=== PATIENT | female | born 1975 | race Caucasian/White ===

== ENCOUNTER 2025-03-12 12:29 | Inpatient (IN) | payer OTHER, SELFPAY ==
--- OUTSIDE RECORDS SUMMARY | 2025-03-10 21:45 | XMS_ITS | Encounter Summary ---
Author Organization [facility] Address [address] [facility] [address] [place] [phone] Phone Care Team Providers Care Lamp Developer Name Role Phone Shayna Becerra NP Primary Care Provider + Reason for Referral * Consultation (Within 2 weeks) - New Request Specialty Diagnoses / Procedures Referred By Mono t Referred To Contact Orthopedic Surgery Max Jennings MD [address] [place] [id number] Phone: tel: fax: mailto:[email or web address] [phone] Phone: tel: Referral ID Status Reason Start Date Expiration Date V isits Requested Visits Authorized [id number] New Request 03/11/2025 03/11/2026 1 1 Reason for Visit * Reason Comments Ankle Injury Encounter Details Date Type Department Care Team ([facility] st Contact Info) Description 03/10/2025 9:45 PM EDT - 03/11/2025 10:20 AM EDT Emergency [facility] Emergency Dept [address] [place] [phone] Emil Bloom MD [address] [place] [id number] [email or web address] Fransisco Han MD, EARLENE [address] [place] [address] [phone] [email or web address] Max Jennings MD [address] [place] [phone] [email or web address] Discharge Disposition: Home or Self Care Social History Tobacco Use Types Packs/Day Years Used Date Smoking Tobacco: Never Passive Smoke Exposure: Never Smokeless Tobacco: Never Tobacco Cessation:Counseling Given: Not Answered Alcohol Use Standard Drinks/Week Comments Yes 0 (1 standard drink = 0.6 oz pur e alcohol) Education Answer Date Recorded Are you interested in more education? Not on corazon e 03/10/2025 Are you concerned about learning? Not on file 03/10/2025 No 03/10/2025 No 03/10/2025 Digital Access Answer Date Recorded No 03/10/2025 No 03/10/2025 Reliable internet access at home? Not on file 03/10/2025 Device with a working camera? Not on file Intimate Partner Violence Answer Date R ecorded Are you denied basic needs s uch as food, clothing, or medical care? No 03/10/2025 In the past 12 months have y ou been in a relationship with a person who hurts, threatens, or tries to control you? No 03/10/2025 Are you denied basic needs s uch as food, clothing, or medical care? No 03/10/2025 In the past 12 months have y ou been in a relationship with a person who hurts, threatens, or tries to control you? No 03/10/2025 Comments Unknown Sex and Gender Information Value Date Recorded Sex Assigned at Not on file Legal Sex Female 9:11 PM EDT Gender Identity Not on file Sexual Orientation Not on file documented as of this encounter Last Filed Vital Signs Vital Sign Reading Time Taken Comments Blood Pressure 116/70 03/11/2025 9:00 AM EDT Pulse 77 03/11/2025 9:00 AM EDT Temperature 36.6 C (97.8 F) 03/11/2025 9:00 AM EDT Respiratory Rate 20 03/11/2025 9:00 AM EDT Oxygen Saturation 97% 03/11/2025 9:00 AM EDT Inhaled Oxygen Concentration - - Weight 56.2 kg (124 lb) 03/11/2025 3:55 AM EDT Height - - Body Mass Index - - documented in this encounter Functional Status * Calculated C-SSRS Risk Score (Lifetime/Recent) Answer Date of Assessment Author No Risk Indicated 03/11/2025 7:37 AM EDT Mayuri Benedict RN * [place] Suicide Severity Rating Scale (Screener/Recent Self-Report) Question Answer Date of Assessment Author 1. Wish to be (Past 1 Month) No 025 7:37 AM EDT Mayuri Collins RN 2. Non-Specific Active Suici aileen Thoughts (Past 1 Month) No 03/11/2025 7:37 AM EDT Manuel Collins RN 6. Suicidal Behavior (Lifetime) No 7:37 AM EDT Mayuri Collins RN documented as of this encounter Discharge Instructions * Discharge Instructions* Nickolas Lockwood MD - 03/11/2025 7:36 AM EDT It was a pleasure evaluating you at the [facility] Emergency Department for your medical care today. What We Found You were seen in the Emergency Department for ankle injury. We took your history and did a physicalexam, lab work, x-rays, CT scans. Your evaluation did not show any life-threatening cause of your symptoms. We believe your symptoms may be due to fractures in her ankle. While in the Emergency Department, we reduced and splinted your ankle. We determined it is safe for you to go home with follow-up care. What to Expect Expect that your pain should get better with time. What to Do Medication changes: Acetaminophen (Tylenol) and ibuprofen (Advil/Motrin) can be taken together to control pain. Take acetaminophen 500mg (Tylenol Extra Strength) - 1 pill every 6 hours as needed for pain. Take ibuprofen 400-600mg (Advil) - 2 or 3 pills with food every 4-6 hours as needed for pain. Do not take naproxen (Aleve) while you are taking ibuprofen. For pain that is not tolerable despite the above, you can take oxycodone 5mg up to every 6 hours. Take aspirin 81mg twice a day until you meet your orthopedics team. Kem-[id number]-[id number] (use crutches) until you see your orthopedics team. When to See a Doctor Please follow up with your orthopedics team in 1 week. When to Return Please return to the Emergency Department or seek further medical attention for any of the following: intolerable pain despite the above regimen, chest pain, shortness of breath, fevers, loss of consciousness, or if you have any other worsening symptoms or concerns. documented in this encounter Medications at Time of Discharge aspirin 81 mg chewable tablet Take 1 tablet (81 mg total) by mouth 2 (two) times a day. 60 tablet 03/11/2025 oxyCODONE 5 MG immediate release tablet Take 1 tablet (5 mg total) by mouth every 6 (six) hours as needed for pain (specific location in comments). Partial fill ok 10 tablet 03/11/2025 documented as of this encounter Progress Notes * Fransisco Han MD, EARLENE - 03/11/2025 3:52 AM EDT History There is no problem list on file for this patient. No past medical history on file. No past surgical history on file. No family history on file. Social History Tobacco Use Smoking status: Never Passive exposure: Never Smokeless tobacco: Never Substance Use Topics Alcohol use: Yes Drug use: Never Current Facility-Administered Medications Medication Dose Route Frequency Provider Last Rate Last Admin acetaminophen (TYLENOL) tablet 975 mg 975 mg Oral Q6H PRN Emil Bloom MD 975 mg at 03/10/252236 ibuprofen (ADVIL,MOTRIN) tablet 600 mg 600 mg Oral Q6H PRN Emil Bloom MD 600 mg at 03/10/252236 morphine injection syringe 2 mg 2 mg Intravenous Once Fransisco Han MD, EARLENE ondansetron (PF) (ZOFRAN) injection 4 mg 4 mg Intravenous Once Fransisco Han MD, EARLENE No current outpatient medications on file. Vitals BP 101/53 Pulse 81 Temp 36.7 ??C (98.1 ??F) (Temporal) Resp 20 SpO2 97% Pre-Sedation Evaluation Purpose of Sedation: Fracture Reduction ROS/Med History General Patient has no history of anesthetic complications. Cardiovascular Cardiovascular review of systems negative except as noted below. Pulmonary Pulmonary review of systems negative except as noted below. GI/Hepatic/Renal GI/hepatic/renal review of systems negative except as noted below. Neuro/Psych Neuro/psych review of systems negative except as noted below. Physical Exam NPO Status: Yes Hours NPO: 9 Airway: Mallampati score is I. Neck ROM is Full. Mouth opening is normal. TM distance is Normal. Dental: The patient in not edentulous. The patient does not have chipped teeth, missing teeth or looseteeth. The patient has dental implants, bridges or caps present. Patient does not have dentures. Car diovascular: The cardiovascular exam is normal. Pulmonary: The pulmonary exam is normal. Breath sounds are clear to auscultation. Neurological: The neurological exam is normal. Sedation Plan ASA Score: 1 Results and Data Reviewed: I personally reviewed the radiology results. I independently viewed the patient's imaging studies. I personally reviewed relevant previous medical records. Sedation Plan: Patient will be placed on color television console monitor, continuous pulse oximetry and continuous capnography. Intravenous access will be maintained. Bag valve mask, oxygen and suction will be available at the bedside. Emergency airway equipment will be immediately available. Medication Plan: Propofol 0.05-2mg/kg IV x1 followed by 0.05-1mg/kg every 2 minutes PRN to achieve deep sedation. Informed Consent: Informed consent obtained from: patient Discharge Plan: Discharge Plan: Has a ride with responsible adult documented in this encounter Consult Notes Only the most recent of 2 notes is shown. * Lauren Lee, PT - 03/11/2025 9:10 AM EDT [facility] PHYSICAL THERAPY EVALUATION Evaluation Impression: Lynda Baca is a 49 y.o. who presents to PT with primary impairments in LLE ROM and muscle performance, balance, gait, and activity tolerance in the setting of a L PER ankle fracture, s/p closed reduction. These impairments negatively impact the patient's ability to resume their independent functional baseline. In today's session, pt demonstrated that she can access and navigate her home environment without physical assistance, compensating well with her axillary crutches and maintaining her weightbearing precautions throughout. Given this and that she has a strong support system at home to assist with ADLs and IADLs as needed, do not anticipate any functional barriers to discharge nora e. No further PT interventions are indicated at this time. Pt plans to follow up with surgeon back home and post op PT plan can be developed then. Therefore, acute PT will sign off but please reach ut with any questions or concerns should they arise. Recommendations: PT Discharge Recommendation: Home no PT services, Home with support PT Discharge Comment: Support from family for higher level ADLs and IADLs as needed Activity While in Hospital: Ambulate with axillary crutches Positioning: Maxamize time OOB AM-PAC (Activity Measure for Post Acute Care): TOTAL SCORE: 24/24 How much help from another person does the patient currently need: Turning from your back to your side while in a flat bed without using bedrails?: None Moving from lying on your back to sitting on the side of a flat bed without using bedrails?: None Moving to and from a bed to a chair (including a wheelchair)?: None Standing up from a chair using your arms (e.g. wheelchair, or bedside chair)?: None Walking in a hospital room?: None Climbing 3-5 steps with a railing?: None [facility]: [facility] Highest Level of Mobility Score: Walk 25+ feet PT History of Present Illness/Hospital Course: 49 y.o. female who sustained a L ankle fracture after jumping off a swing. On exam, NVID. XR demonstrate a L PER ankle fracture. The ankle was closed reduced and splinted in the emergency department. Tests, Labs and Medications: reviewed for relevance Social/Occupational History/Living Environment: Living Environment Lives In: [x] House [] Apartment [] Other Stairs to Enter: 3 Stairs Within: 1 FOS Social Supports Lives With: 16 and 19 yo children Local Support: Family and friends near by Transportation: [x] Self [] Public [] Family/Friends [] The Ride Prior Level of Function Independent Occupation RN Hobbies - Exercise History - Prior Rehab [] Inpatient PT [x] Home PT [x] Outpatient PT Falls History [] Yes [x] No Equipment at Home [] Rolling Walker [] Rolator [] Cane [] Shower Chair [x] Other: axillary crutches Patient Goals: to get better Precautions: LLE NWB in splint Arousal/Attention/Cognition/Communication: WNL Pain: 10/10 pain in LLE Integument: visualized areas WNL Sensation: LLE intact to LT Range of Motion: WNL except unable to assess LLE Muscle Performance: WNL except L hip flexion and knee flexion/extension limited d/t pain, unable toassess L ankle d/t splint Motor Function: isolated and coordinated movements throughout Function/Balance: I = Independent, S = Supervision, CTG = Contact Guard, Min = Minimal Assist, Mod = Moderate Assist,Max = Maximal Assist, D = Dependent, SW=Standard Walker Activity Assistance Device Comments Bed Mobility NE Received in w/c Supine ? Sit NE Sitting Balance I Sit ? Stand I Axillary crutches Standing Balance I Transfers I Good sequencing with device Ambulation I ~25ft, good sequencing and maintained precautions Dynamic Balance I No overt LOB with any mobility task, proper use of crutches throughout Stairs I None Bumped up/down 7 steps with ease, do not anticipate any functional barriers to home Gait: 2 point gait pattern with crutches Ventilation: unlabored, even Hemodynamic Responses / Aerobic Capacity / Endurance: HDS throughout, see flowsheets Frequency*: No further PT needs in this setting (DC acute PT) Plan of Care: DC acute PT Intervention provided: IE completed Therapeutic procedures: Therapeutic activities - sit <> stand and transfers with HD monitoring Gait training and stair training as above Self-care/Home management - Role of PT, POC, mobility recommendations while in house, NWB precautions, how to use crutches/bump up stairs, discharge recommendations Education: as stated above Access Code: [email or web address] URL: [email or web address] Date: 03/11/2025 Prepared by: Lauren Lee Education - Non-Weight Bearing Walking with Crutches Communication: RN and RC re coordination of care, session tolerance, and discharge recommendations Signature: Lauren Lee, [place] [id number] Additional personnel present for part or entirety of today's session: none *The patient???s progress will be assessed at each session. The frequency may be increased or tapered as treatment progresses based on the therapist???s judgment of factors including but not limited to; co morbidities, tissue healing, patient/caregiver independent self management, ability to participate in/receive therapy due to medical stability and/or competing care priorities This note may not reflect all data entered in the flow sheets. Please refer to the column associated with the time of this note for any additional information. documented in this encounter ED Notes * Lynda Quispe - 03/10/2025 9:52 PM EDT Bed: 13 Expected date: Expected time: Means of arrival: Comments: Paged - PT in surge * Mayco Delarosa, RN - 03/10/2025 9:12 PM EDT S-pt standing on structure aprox 2 feet high and jumped off feeling crack to left ankle, + deformity with swelling now, CSMs intact, denies head strike, neg LOC, + ETOH * Leslie Hubbard MD - 03/10/2025 9:11 PM EDT Emergency Department Provider Note Chief Complaint Patient presents with Ankle Injury Triage Note:S-pt standing on structure aprox 2 feet high and jumped off feeling crack to left ankle, + deformity with swelling now, CSMs intact, denies head strike, neg LOC, + ETOH HPI: 49 y.o. female with no significant past medical history presents with left ankle pain and swelling. This evening, patient jumped off of a platform that was raised approximately 2 feet off the ground.She landed on her feet but felt immediate, severe pain in her left ankle and thought she heard an audible crack or pop at the time of impact. She has not been able to walk or bear weight on her left leg since and has had significant pain and swelling to the left ankle. Pain extends superiorly to the mid tib/fib and distally the the entire left foot. Feels unable to move the toes on her left foot.Did not notice any open wounds, bleeding, foreign bodies. Incident happened around 8:30pm. Patient endorses having had 3 drinks over the course of the afternoon/evening and 5mg THC. No other body parts were injured. No head strike, no loss of consciousness.Years ago broke her left 5th toe that was managed nonoperatively. No known history of osteoporosis or malignancy. Not on thinners. Has been attempting to manage pain with ice and compression without relief. Pain is so bad that shealso feels nauseated. No known allergies. Last PO intake around 7-7:30PM. Physical Exam: BP 115/69 Pulse 84 Temp 36.9 ??C (98.5 ??F) (Temporal) Resp 20 SpO2 99% Gen: Tearful Resp: Normal resp rate. Lungs clear to auscultation bilaterally CV: RRR. No murmurs. DP pulses strong and equal bilterally. Cap refills < 2 seconds. MSK: Swelling of the left ankle. Tenderness to palpation diffusely from L mid tib/fib through the midfoot. No swelling of the L knee; no discrete pain, but patient states palpation of the knee is uncomfortable. Skin: Warm, dry. Complexion normal. No open wounds. Neuro: GCS 15. Sensation to light touch intact over LLE. Movement in L ankle joint limited by pain.Unable to move L toes. ? Assessment, Plan and ED Course:49 y.o. female with history of no significant past medical history presents with left ankle pain and swelling. MDM Most concerned for ankle fracture given significant swelling and pain with inability to bear weight, will obtain XR. Less likely is proximal tib/fib injury, but with tenderness extending up to mid tib/fib and discomfort with knee palpation, will obtain tib/fib films as well. Similarly, no swelling or point tenderness over the left foot to raise concern for specific foot injury, but given diffuse pain, will obtain foot XR as well. Reassured that patient is vascularly intact with normal sensationto light touch; difficult to discern on initial evaluation whether difficulty moving toes is due tomotor compromise vs pain limitation. Will manage pain and re-evaluate. Strongly suspect fracture; wi ll review films and discuss with orthopedics. No open wounds to raise concern for open fracture; donot think antibiotics/Tdap warranted. ED Course as of 03/11/25 1011 Sat Mar 10, 2025 2316 Pain worsening, not improved after morphine, will trial Dilaudid [LB] [id number] Cornell's cell [LB] Janet Mar 11, 2025 0205 Orthopedics attempted reduction but needs better alignment, will need to work on sedation for additional attempt [] 0441 Sedation for reduction completed, awaiting formal x-rays [] 0712 I assumed care at 7:12 AM of Lynda Baca who presented: 49 yoF h/w L ankle injury - trimal Sedation done for reduction. [] CT ankle [] final recs from Ortho Please see original provider note for full H&P. [NO] 0722 Ortho says OK for home w/ ortho f/u [] ED Course User Index [] Francisca Cornell MD [LB] Leslie Hubbard MD [NO] Nickolas Lockwood MD Clinical Impressions as of 03/11/25 1011 Closed fracture of left ankle, initial encounter Disposition: Care signed out to incoming team. Leslie Hubbard MD PGY2 [id number] Leslie Hubbard MD Resident 03/11/25 1026 documented in this encounter Plan of Treatment Pending Results Name Type Priority Associated Diagnoses Date /Time Sedation Nursing Routine 03/11/2025 5:0 0 AM EDT Scheduled Referrals Name Type Priority Associated Diagnoses Order Schedule Ambulatory referral to [facility] Orthopedic - Private Practices Outpatient Referral STAT Ordered: 03/11/2025 documented as of this encounter Procedures Procedure Name Priority Date/Time Associated Diagnosis Comments CT ANKLE WITHOUT CONTRAST (LEFT) Routine 03/11/2025 6:53 AM EDT XR ANKLE 3 OR MORE VIEWS (LEFT) Routine 03/11/2025 5:45 AM EDT SEDATION Routine 03/11/2025 5:00 AM EDT XR ANKLE 3 OR MORE VIEWS (LEFT) Routine 03/11/2025 1:26 AM EDT XR FOOT 3 OR MORE VIEWS (LEFT) Routine 03/10/2025 11:03 PM EDT XR ANKLE 3 OR MORE VIEWS (LEFT) Routine 03/10/2025 11:03 PM EDT XR TIBIA FIBULA 2 VIEWS (LEFT) Routine 03/10/2025 11:03 PM EDT documented in this encounter Results * CT ANKLE WITHOUT CONTRAST (LEFT) (03/11/2025 6:53 AM EDT) Anatomical Region Laterality Modality Ankle Left Computed Tomogra phy 03/11/2025 8:07 AM EDT Impressions 03/11/2025 8:18 AM EDT Cast multiple ankle fractures, including medial malleolar, posterior malleolar and distal fibular diaphyseal fractures as described. Narrative 03/11/2025 8:[address] ANKLE WITHOUT CONTRAST (LEFT) Referring clinician's provided indication for this examination in Epic: * Ankle dislocation TECHNIQUE: Multidetector-row CT of the ankle, without intravenous contrast using dose-modulation techniques. Images were reconstructed in the axial, coronal, and sagittal planes. COMPARISON: XR ANKLE 3 OR MORE VIEWS (LEFT) ; XR ANKLE 3 OR MORE VIEWS (LEFT) 05:40:40.000 FINDINGS: Interval casting of multiple ankle fractures. Multiple fractures including: * Mildly displaced fracture of the medial malleolus. Improved alignment compared to original radiograph from 03/10/2025, although similar to prior same day radiograph. * Mildly displaced fracture of the distal fibular diaphysis with minimally comminuted fragments, and half shaft width lateral displacement of the distal fracture fragment. * Fracture fragments at the lateral aspect of the distal tibia at the level of the syndesmosis with mild widening of the syndesmosis. * Posterior malleolus fractures. Tibiotalar alignment appears maintained. Diffuse soft tissue swelling, hemorrhage and edema about the ankle. Procedure Note Jared Bautista MD - 03/11/2025 CT ANKLE WITHOUT CONTRAST (LEFT) Referring clinician's provided indication for this examination in [facility]: *Ankle dislocation TECHNIQUE: Multidetector-row CT of the ankle, without intravenous contrastusing dose-modulation techniques. Images were reconstructed in the axial,coronal, and sagittal planes. COMPARISON: XR ANKLE 3 OR MORE VIEWS (LEFT) ; XR ANKLE 3 ORMORE VIEWS (LEFT) 05:40:40.000 FINDINGS: Interval casting of multiple ankle fractures. Multiple fractures including: * Mildly displaced fracture of the medial malleolus. Improved alignmentcompared to original radiograph from 03/10/2025, although similar to day radiograph. * Mildly displaced fracture of the distal fibular diaphysis withminimally comminuted fragments, and half shaft width lateral displacementof the distal fracture fragment. * Fracture fragments at the lateral aspect of the distal tibia at thelevel of the syndesmosis with mild widening of the syndesmosis. * Posterior malleolus fractures. Tibiotalar alignment appears maintained. Diffuse soft tissue swelling, hemorrhage and edema about the ankle. IMPRESSION: Cast multiple ankle fractures, including medial malleolar, posteriormalleolar and distal fibular diaphyseal fractures as described. us Fransisco Han MD, EARLENE IMG CT EXTREMITY Final Re sult * XR ANKLE 3 OR MORE VIEWS (LEFT) (03/11/2025 5:45 AM EDT) Anatomical Region Laterality Modality Ankle Left Computed Radiogr aphy 03/11/2025 6:04 AM EDT Impressions 03/11/2025 6:06 AM EDT FINDINGS/IMPRESSION: Images obtained with overlying cast material which partially obscures bony detail. Redemonstration of acute fractures of the medial malleolus and distal fibula. There is ongoing interval improvement in alignment of the fractures, with improved distal tibiofibular alignment in comparison to prior. Tibiotalar alignment appears maintained. Narrative 03/11/2025 6:06 AM EDT XR ANKLE 3 OR MORE VIEWS (LEFT) Referring clinician's provided indication for this examination in [facility]: Trauma; s/p reduction COMPARISON: XR ANKLE 3 OR MORE VIEWS (LEFT) 01:17:28.000 Procedure Note Clifford Kam MD - 03/11/2025 XR ANKLE 3 OR MORE VIEWS (LEFT) Referring clinician's provided indication for this examination in [facility]:Trauma; s/p reduction COMPARISON: XR ANKLE 3 OR MORE VIEWS (LEFT) 01:17:28.000 IMPRESSION: FINDINGS/IMPRESSION: Images obtained with overlying cast material which partially obscures bonydetail. Redemonstration of acute fractures of the medial malleolus and distalfibula. There is ongoing interval improvement in alignment of the fractures, withimproved distal tibiofibular alignment in comparison to prior. Tibiotalar alignment appears maintained. Fransisco Han MD, EARLENE IMG XR LOWER EXTREMITY Fi nal Result * XR ANKLE 3 OR MORE VIEWS (LEFT) (03/11/2025 1:26 AM EDT) Anatomical Region Laterality Modality Ankle Left Computed Radiogr aphy 03/11/2025 2:32 AM EDT Impressions 03/11/2025 2:33 AM EDT FINDINGS/IMPRESSION: Images obtained with overlying cast material which partially obscures bony detail. Redemonstration of acute fractures of the medial malleolus and distal fibula. Alignment is improved from prior. Mild persistent widening of the distal tibiofibular syndesmosis. Tibiotalar alignment appears grossly maintained. Narrative 03/11/2025 2:33 AM EDT XR ANKLE 3 OR MORE VIEWS (LEFT) Referring clinician's provided indication for this examination in [facility]: Fracture Follow Up COMPARISON: XR ANKLE 3 OR MORE VIEWS (LEFT) Procedure Note Clifford Kam MD - 03/11/2025 XR ANKLE 3 OR MORE VIEWS (LEFT) Referring clinician's provided indication for this examination in [facility]:Fracture Follow Up COMPARISON: XR ANKLE 3 OR MORE VIEWS (LEFT) IMPRESSION: FINDINGS/IMPRESSION: Images obtained with overlying cast material which partially obscures bonydetail. Redemonstration of acute fractures of the medial malleolus and distalfibula. Alignment is improved from prior. Mild persistent widening of the distaltibiofibular syndesmosis. Tibiotalar alignment appears grossly maintained. us Fransisco Han MD, EARLENE IMG XR LOWER EXTREMITY Fi nal Result * XR Tibia Fibula 2 Views (Left) (03/10/2025 11:03 PM EDT) Anatomical Region Laterality Modality Leg Left Computed Radiogr aphy 03/11/2025 2:24 AM EDT Impressions 03/11/2025 2:28 AM EDT Acute fractures of the medial malleolus and distal fibula with dislocation of the distal tibiofibular syndesmosis and malalignment of the tibiotalar joint. Narrative 03/11/2025 2:28 AM EDT XR ANKLE 3 OR MORE VIEWS (LEFT), XR TIBIA FIBULA 2 VIEWS (LEFT), XR FOOT 3 OR MORE VIEWS (LEFT) Referring clinician's provided indication for this examination in Epic: Pain; fall, ankle tenderness. COMPARISON: FINDINGS: Tibia/fibula, foot, and ankle: Acute fracture of the medial malleolus. Acute fracture of the distal fibula above the level of the distal tibiofibular syndesmosis with apex medial angulation and anterior displacement of the distal fracture fragment. There is dislocation of the distal tibiofibular syndesmosis and malalignment of the tibiotalar joint. Procedure Note Clifford Kam MD - 03/11/2025 XR ANKLE 3 OR MORE VIEWS (LEFT), XR TIBIA FIBULA 2 VIEWS (LEFT), XR FOOT 3OR MORE VIEWS (LEFT) Referring clinician's provided indication for this examination in Epic:Pain; fall, ankle tenderness. COMPARISON: FINDINGS: Tibia/fibula, foot, and ankle: Acute fracture of the medial malleolus. Acute fracture of the distal fibula above the level of the distaltibiofibular syndesmosis with apex medial angulation and anteriordisplacement of the distal fracture fragment. There is dislocation of the distal tibiofibular syndesmosis andmalalignment of the tibiotalar joint. IMPRESSION: Acute fractures of the medial malleolus and distal fibula with dislocationof the distal tibiofibular syndesmosis and malalignment of the tibiotalarjoint. us Emil Bloom MD IMG XR LOWER EXTREMITY Final R esult * XR ANKLE 3 OR MORE VIEWS (LEFT) (03/10/2025 11:03 PM EDT) Anatomical Region Laterality Modality Ankle Left Computed Radiogr aphy 03/11/2025 2:24 AM EDT Impressions 03/11/2025 2:28 AM EDT Acute fractures of the medial malleolus and distal fibula with dislocation of the distal tibiofibular syndesmosis and malalignment of the tibiotalar joint. Narrative 03/11/2025 2:28 AM EDT XR ANKLE 3 OR MORE VIEWS (LEFT), XR TIBIA FIBULA 2 VIEWS (LEFT), XR FOOT 3 OR MORE VIEWS (LEFT) Referring clinician's provided indication for this examination in Epic: Pain; fall, ankle tenderness. COMPARISON: FINDINGS: Tibia/fibula, foot, and ankle: Acute fracture of the medial malleolus. Acute fracture of the distal fibula above the level of the distal tibiofibular syndesmosis with apex medial angulation and anterior displacement of the distal fracture fragment. There is dislocation of the distal tibiofibular syndesmosis and malalignment of the tibiotalar joint. Procedure Note Clifford Kam MD - 03/11/2025 XR ANKLE 3 OR MORE VIEWS (LEFT), XR TIBIA FIBULA 2 VIEWS (LEFT), XR FOOT 3OR MORE VIEWS (LEFT) Referring clinician's provided indication for this examination in Epic:Pain; fall, ankle tenderness. COMPARISON: FINDINGS: Tibia/fibula, foot, and ankle: Acute fracture of the medial malleolus. Acute fracture of the distal fibula above the level of the distaltibiofibular syndesmosis with apex medial angulation and anteriordisplacement of the distal fracture fragment. There is dislocation of the distal tibiofibular syndesmosis andmalalignment of the tibiotalar joint. IMPRESSION: Acute fractures of the medial malleolus and distal fibula with dislocationof the distal tibiofibular syndesmosis and malalignment of the tibiotalarjoint. us Emil Bloom MD IMG XR LOWER EXTREMITY Final R esult * XR FOOT 3 OR MORE VIEWS (LEFT) (03/10/2025 11:03 PM EDT) Anatomical Region Laterality Modality Foot Left Computed Radiogr aphy 03/11/2025 2:24 AM EDT Impressions 03/11/2025 2:28 AM EDT Acute fractures of the medial malleolus and distal fibula with dislocation of the distal tibiofibular syndesmosis and malalignment of the tibiotalar joint. Narrative 03/11/2025 2:28 AM EDT XR ANKLE 3 OR MORE VIEWS (LEFT), XR TIBIA FIBULA 2 VIEWS (LEFT), XR FOOT 3 OR MORE VIEWS (LEFT) Referring clinician's provided indication for this examination in Epic: Pain; fall, ankle tenderness. COMPARISON: FINDINGS: Tibia/fibula, foot, and ankle: Acute fracture of the medial malleolus. Acute fracture of the distal fibula above the level of the distal tibiofibular syndesmosis with apex medial angulation and anterior displacement of the distal fracture fragment. There is dislocation of the distal tibiofibular syndesmosis and malalignment of the tibiotalar joint. Procedure Note Clifford Kam MD - 03/11/2025 XR ANKLE 3 OR MORE VIEWS (LEFT), XR TIBIA FIBULA 2 VIEWS (LEFT), XR FOOT 3OR MORE VIEWS (LEFT) Referring clinician's provided indication for this examination in Epic:Pain; fall, ankle tenderness. COMPARISON: FINDINGS: Tibia/fibula, foot, and ankle: Acute fracture of the medial malleolus. Acute fracture of the distal fibula above the level of the distaltibiofibular syndesmosis with apex medial angulation and anteriordisplacement of the distal fracture fragment. There is dislocation of the distal tibiofibular syndesmosis andmalalignment of the tibiotalar joint. IMPRESSION: Acute fractures of the medial malleolus and distal fibula with dislocationof the distal tibiofibular syndesmosis and malalignment of the tibiotalarjoint. us Emil Bloom MD IMG XR LOWER EXTREMITY Final R esult documented in this encounter Visit Diagnoses Diagnosis Closed fracture of left ankle, initial encounter- Primary documented in this encounter Administered Medications Inactive Administered Medications - up to 3 most recent administrations Medication Order MAR Action Action Date Dose Rate Site acetaminophen (TYLENOL) tablet 975 mg 975 mg, Oral, Every 6 hours PRN, mild pain or 1-3 (on a general 0-10 scale), moderate pain or 4-6 (on a general 0-10 scale), severe pain or 7-10 (on a general 0-10 scale), Starting on 03/10/25 at 2227 Given 03/11/2025 9:04 AM EDT 975 mg Given 03/10/2025 10:37 PM EDT 975 mg diazePAM (VALIUM) injection syringe 5 mg 5 mg, Intravenous, Once, On 03/11/25 at 0030, For 1 dose, Avoid extravasation. Given 03/11/2025 12:38 AM EDT 5 mg fentaNYL (PF) (SUBLIMAZE) injection 100 mcg 100 mcg, Intravenous, Once, On 03/11/25 at 0115, For 1 dose Given 03/11/2025 1:10 AM EDT 100 mcg HYDROmorphone (PF) (DILAUDID) injection syringe 0.5 mg 0.5 mg, Intravenous, Once, On 03/11/25 at 0530, For 1 dose Given 03/11/2025 5:37 AM EDT 0.5 mg HYDROmorphone (PF) (DILAUDID) injection syringe 0.5-1 mg 0.5-1 mg, Intravenous, Every 4 hours PRN, severe pain or 7-10 (on a general 0-10 scale), Starting on 03/10/25 at 2315 Given 03/10/2025 11:28 PM EDT 1 mg ibuprofen (ADVIL,MOTRIN) tablet 600 mg 600 mg, Oral, Every 6 hours PRN, mild pain or 1-3 (on a general 0-10 scale), moderate pain or 4-6 (on a general 0-10 scale), severe pain or 7-10 (on a general 0-10 scale), Starting on 03/10/25 at 2227 Given 03/11/2025 9:04 AM EDT 600 mg Given 03/10/2025 10:37 PM EDT 600 mg lidocaine (PF) (XYLOCAINE-MPF) 1% injection 5 mL 5 mL, Infiltration, Once, On 03/11/25 at 0030, For 1 dose Given by Other 03/11/2025 12:46 AM EDT 5 mL morphine injection 4 mg 4 mg, Intravenous, Once, On 03/10/25 at 2230, For 1 dose Given 03/10/2025 10:24 PM EDT 4 mg morphine injection syringe 2 mg 2 mg, Intravenous, Once, On 03/11/25 at 0330, For 1 dose Given 03/11/2025 3:48 AM EDT 2 mg ondansetron (PF) (ZOFRAN) injection 4 mg 4 mg, Intravenous, Every 6 hours PRN, vomiting, nausea, Starting on 03/10/25 at 2227 Given 03/10/2025 10:37 PM EDT 4 mg ondansetron (PF) (ZOFRAN) injection 4 mg 4 mg, Intravenous, Once, On 03/11/25 at 0330, For 1 dose Given 03/11/2025 3:54 AM EDT 4 mg oxyCODONE tablet 10 mg 10 mg, Oral, Once, On 03/11/25 at 0030, For 1 dose Given 03/11/2025 12:45 AM EDT 10 mg propofol (DIPRIVAN) injection Code/trauma/sedation medication, Starting on 03/11/25 at 0407, For 1 dose Given 03/11/2025 4:07 AM EDT 50 mg propofol (DIPRIVAN) injection Code/trauma/sedation medication, Starting on 03/11/25 at 0410, For 1 dose Given 03/11/2025 4:10 AM EDT 25 mg propofol (DIPRIVAN) injection Code/trauma/sedation medication, Starting on 03/11/25 at 0411, For 1 dose Given 03/11/2025 4:11 AM EDT 25 mg propofol (DIPRIVAN) injection Code/trauma/sedation medication, Starting on 03/11/25 at 0415, For 1 dose Given 03/11/2025 4:15 AM EDT 50 mg propofol (DIPRIVAN) injection Code/trauma/sedation medication, Starting on 03/11/25 at 0417, For 1 dose Given 03/11/2025 4:17 AM EDT 25 mg propofol (DIPRIVAN) injection Code/trauma/sedation medication, Starting on 03/11/25 at 0420, For 1 dose Given 03/11/2025 4:20 AM EDT 25 mg propofol (DIPRIVAN) injection Code/trauma/sedation medication, Starting on 03/11/25 at 0422, For 1 dose Given 03/11/2025 4:22 AM EDT 25 mg propofol (DIPRIVAN) injection Code/trauma/sedation medication, Starting on 03/11/25 at 0424, For 1 dose Given 03/11/2025 4:24 AM EDT 25 mg propofol (DIPRIVAN) injection Code/trauma/sedation medication, Starting on 03/11/25 at 0427, For 1 dose Given 03/11/2025 4:27 AM EDT 25 mg propofol (DIPRIVAN) injection Code/trauma/sedation medication, Starting on 03/11/25 at 0431, For 1 dose Given 03/11/2025 4:31 AM EDT 25 mg documented in this encounter Active and Recently Administered Medications Times are shown in EDT. Scheduled Medication Order 03/09/2025 03/10/2025 03/11/2025 diazePAM (VALIUM) injection syringe 5 mg (COMPLETED) 5 mg, Intravenous, Once, On 03/11/25 at 0030, For 1 dose, Avoid extravasation. 0038 (Given - Provid er: Nely Barakat RN) fentaNYL (PF) (SUBLIMAZE) injection 100 mcg (COMPLETED) 100 mcg, Intravenous, Once, On 03/11/25 at 0115, For 1 dose 0110 (Given - Provid er: Rob Peterson RN) HYDROmorphone (PF) (DILAUDID) injection syringe 0.5 mg (COMPLETED) 0.5 mg, Intravenous, Once, On 03/11/25 at 0530, For 1 dose 0537 (Given - Provid er: Nely Barakat RN) lidocaine (PF) (XYLOCAINE-MPF) 1% injection 5 mL (COMPLETED) 5 mL, Infiltration, Once, On 03/11/25 at 0030, For 1 dose 0046 (Given by Other - Provider: Nely Barakat RN - Comment: Given by ortho for splint.) morphine injection 4 mg (COMPLETED) 4 mg, Intravenous, Once, On 03/10/25 at 2230, For 1 dose 2224 (Given - Provider: Nely Barakat RN) morphine injection syringe 2 mg (COMPLETED) 2 mg, Intravenous, Once, On 03/11/25 at 0330, For 1 dose 0348 (Given - Provid er: Nely Barakat RN) ondansetron (PF) (ZOFRAN) injection 4 mg (COMPLETED) 4 mg, Intravenous, Once, On 03/11/25 at 0330, For 1 dose 0354 (Given - Provid er: Nely Barakat RN) oxyCODONE tablet 10 mg (COMPLETED) 10 mg, Oral, Once, On 03/11/25 at 0030, For 1 dose 0045 (Given - Provid er: Nely Barakat RN) propofol (DIPRIVAN) injection 150 mg 150 mg, Intravenous, Once, On 03/11/25 at 0400, For 1 dose 0447 (Not Given - Provider: Payal Lobo RN - Reason: One [facility] already given) PRN Medication Order 03/09/2025 03/10/2025 03/11/2025 acetaminophen (TYLENOL) tablet 975 mg 975 mg, Oral, Every 6 hours PRN, mild pain or 1-3 (on a general 0-10 scale), moderate pain or 4-6 (on a general 0-10 scale), severe pain or 7-10 (on a general 0-10 scale), Starting on 03/10/25 at 2227 2237 (Given - Provider: Nely Barakat RN) 0904 (Given - Provider: Greta Rankin RN) HYDROmorphone (PF) (DILAUDID) injection syringe 0.5-1 mg (CANCELED) 0.5-1 mg, Intravenous, Every 4 hours PRN, severe pain or 7-10 (on a general 0-10 scale), Starting on 03/10/25 at 2315 2328 (Given - Provider: Nely Barakat RN) ibuprofen (ADVIL,MOTRIN) tablet 600 mg 600 mg, Oral, Every 6 hours PRN, mild pain or 1-3 (on a general 0-10 scale), moderate pain or 4-6 (on a general 0-10 scale), severe pain or 7-10 (on a general 0-10 scale), Starting on 03/10/25 at 2227 2237 (Given - Provider: Nely Barakat RN) 0904 (Given - Provider: Greta Rankin RN) ondansetron (PF) (ZOFRAN) injection 4 mg (CANCELED) 4 mg, Intravenous, Every 6 hours PRN, vomiting, nausea, Starting on 03/10/25 at 2227 2237 (Given - Provider: Nely Barakat RN) propofol (DIPRIVAN) injection (COMPLETED) Code/trauma/sedation medication, Starting on 03/11/25 at 0407, For 1 dose 0407 (Given - Provid er: Francisca Cornell MD) propofol (DIPRIVAN) injection (COMPLETED) Code/trauma/sedation medication, Starting on 03/11/25 at 0410, For 1 dose 0410 (Given - Provid er: Francisca Cornell MD) propofol (DIPRIVAN) injection (COMPLETED) Code/trauma/sedation medication, Starting on 03/11/25 at 0411, For 1 dose 0411 (Given - Provid er: Francisca Cornell MD) propofol (DIPRIVAN) injection (COMPLETED) Code/trauma/sedation medication, Starting on 03/11/25 at 0415, For 1 dose 0415 (Given - Provid er: Francisca Cornell MD) propofol (DIPRIVAN) injection (COMPLETED) Code/trauma/sedation medication, Starting on 03/11/25 at 0417, For 1 dose 0417 (Given - Provid er: Francisca Cornell MD) propofol (DIPRIVAN) injection (COMPLETED) Code/trauma/sedation medication, Starting on 03/11/25 at 0420, For 1 dose 0420 (Given - Provid er: Francisca Cornell MD) propofol (DIPRIVAN) injection (COMPLETED) Code/trauma/sedation medication, Starting on 03/11/25 at 0422, For 1 dose 0422 (Given - Provid er: Francisca Cornell MD) propofol (DIPRIVAN) injection (COMPLETED) Code/trauma/sedation medication, Starting on 03/11/25 at 0424, For 1 dose 0424 (Given - Provid er: Francisca Cornell MD) propofol (DIPRIVAN) injection (COMPLETED) Code/trauma/sedation medication, Starting on 03/11/25 at 0427, For 1 dose 0427 (Given - Provid er: Francisca Conrell MD) propofol (DIPRIVAN) injection (COMPLETED) Code/trauma/sedation medication, Starting on 03/11/25 at 0431, For 1 dose 0431 (Given - Provid er: Francisca Cornell MD) documented in this encounter Care Teams Lamp Developer Relationship Specialty Start Date End Date Shayna Becerra NP [address] [address] PCP - General Nurse Practitioner 03/10/25 documented as of this encounter Additional Source Comments The information contained in this document represents components of the legal health record. It is not the complete legal health record.[facility]
--- NOTE | ~2025-03-12 | FL_ITS ---
EXAMINATION: XR FLUOROSCOPY WITH IMAGES CLINICAL INFORMATION: Ankle ORIF COMPARISON: None available. TECHNIQUE: Fluoroscopy provided to: Dr. Haynes Fluoroscopy time: 0.5 minutes DAP: 0.4 mGycm2 Images: 4 FINDINGS: Fluoroscopy in the operating room for internal fixation of a distal tibia and fibular fracture. See operative report for details. FL/FL guidance in OR IMPRESSION: As above Electronically signed by: Matthew Thomas MD 03/14/2025 04:43 PM EDT
--- NOTE | ~2025-03-12 | XR_ITS ---
CLINICAL HISTORY: S p fall, L ankle dislocation, severe L ankle pain 2 view left ankle Comparison: None provided Findings: There are mildly displaced fractures of the distal diaphysis of the fibula and the medial malleolus. There is asymmetric widening of the medial aspect of the ankle mortise. There is severe soft tissue edema. No significant loss of joint space, osteophytes, or erosions. Limited evaluation for ankle effusion. No radiopaque foreign body. IMPRESSION: 1. Acute fractures of the distal diaphysis of the fibula and the medial malleolus. 2. Asymmetric widening of the medial ankle mortise. This document has been electronically signed by: Briana Shirley MD on 03/12/2025 13:24:47
[2025-03-12 12:32] VITALS: BP 142/81; PULSE 86; RESP 16; TEMP 36.8; O2SAT 100; BMI 27.3
--- NOTE | 2025-03-12 12:43 | ED_ITS ---
HPI - General Adult General Chief complaint: Extremity Injury, Lower Stated complaint: fall t-1, l leg pain Time Seen by Provider: 03/12/25 12:47 Source: patient Mode of arrival: ambulatory Limitations: no limitations History of Present Illness ED Provider: DR. Espinosa HPI narrative: 49-year-old female s/p left ankle fracture dislocation on Wednesday in [place], patient s/p had left ankle reduction under conscious sedation done at [place] and had sugar-tong and posterior splint placed at the hospital, patient was given oxycodone. Returned today for increased left ankle pain despite taking oxycodone before coming to the hospital. No blue discoloration, still able to wiggle her toes. Related Data Allergies Allergy/AdvReac Type Severity Reaction Status Date / Time No Known Allergies Allergy Verified 03/12/25 12:36 Review of Systems Review of Systems: All other systems are reviewed and are negative Constitutional: Reports as per HPI and Reports no additional constitutional complaints Eyes: Reports as per HPI and Reports no additional eye complaints Reports system reviewed and no additional complaints, except as documented Cardiovascular: Reports as per HPI and Reports no additional cardiovascular complaints Respiratory: Reports as per HPI and Reports no additional respiratory complaints Gastrointestinal: Reports as per HPI and Reports no additional gastrointestinal complaints Genitourinary: Reports no additional female genitourinary complaints Musculoskeletal: Reports no additional musculoskeletal complaints Skin/Breast: Reports system reviewed and no additional complaints, except as docu Psychiatric: Reports no additional psychiatric complaints Endocrine: Reports no additional endocrine complaints Hematologic/Lymphatic: Reports no additional hematologic/lymphatic complaints Allergic/Immunologic: Reports no additional allergic/immunologic complaints Reports system reviewed and no additional complaints, except as documented and Reports Abnormal speech present. [facility] Social History Social History Unable to assess alcohol history related to: Unknown Advance Directives: No Advance Directives Information Provided: No Do you have a plan to hurt others: No Plan Physical Exam ED Vital Signs: Vital Signs - 24 hr 03/12/25 12:32 03/12/25 13:28 03/12/25 15:27 Temperature 98.2 F Pulse Rate 86 74 78 Respiratory Rate 16 18 18 Blood Pressure 142/81 H 118/67 110/62 Pulse Oximetry 100 93 99 Oxygen Delivery Method Room Air Room Air Room Air BMI result Body Mass Index 27.3 Vital signs have been reviewed and appear to be correct. Blood pressure elevated. Heart rate normal. Respiratory rate normal. Temperature normal. Oxygen saturation normal. Appearance: Alert. Oriented X3. No acute distress. Head: Normal external exam. Normocephalic. Atraumatic. No Garay signs noted. No raccoon eyes noted Eyes: PERRLA. EOMI. Conjunctiva and sclera normal. Eyelids normal. ENT: TM's Normal. Pharynx normal. Uvula midline. Moist mucous membranes. No trismus noted. No drooling noted. No muffled voice noted. Neck: Normal inspection. Neck supple. FROM. No adenopathy. Thyroid Normal. No meningeal signs. No neck mass noted. CVS: Normal heart rate and rhythm. Heart sound normal. No murmurs noted. Pulses normal throughout. Respiratory: No respiratory distress. Painless inspiration. Breath sounds normal. No wheezes/rales/rhonchi noted. Chest nontender. No accessory muscle usage noted or decreased air movement noted. Abdomen: Soft and nontender. Bowel sounds normal in all 4 quadrants. No distention noted. No organomegaly noted. No visible injury noted. Back: No CVA tenderness. Full range of motion noted. Skin: Skin warm and dry. Normal skin color. Normal skin turgor. No rashes/lesions/lacerations noted. Extremities: Left lower extremity: Swelling around the left ankle, diffuse tenderness along the left ankle, +strong PT/DP, was cap refill less than 2 seconds, left foot is slightly cooler than the right foot. Neuro: Oriented X 3. Cranial nerve exam: II-XII are grossly intact No motor deficit. No sensory deficit. Reflexes normal. Course Course Course Narrative: Rapid medical examination performed in triage by Shannon Mujica PA-C. Patient is a 49 year old assigned female at presenting to the emergency department with a left ankle fracture. Patient states that she has a left ankle fracture and is having severe pain after having it splinted at [facility]. Detailed physical exam and review of systems are deferred to the toe former stitchdowns. forest biometrics professor aware. Reevaluation(s) Reevaluation #1: Left ankle fracture, repeat exam shows no compartment syndrome, continue with immobilization with splint. Case discussed with Bart flores for ortho who recommended to admit to medical for pain control and they will consult on the patient. Patient received multiple doses of Dilaudid and oxycodone in the emergency department still with severe pain and vomiting will admit for symptoms control. Time: 16:30 Medications Administered Discontinued Medications Generic Name Dose Route Start Last Admin Trade Name Vick PRN Reason Stop Dose Admin Hydromorphone HCl 1 mg 03/12/25 12:46 03/12/25 12:49 Hydromorphone Hcl 1 Mg/Ml Syringe IVPUSH 03/12/25 12:47 1 mg ONCE ONE Administration Protocol Hydromorphone HCl 1 mg 03/12/25 13:14 03/12/25 13:24 Hydromorphone Hcl 1 Mg/Ml Syringe IVPUSH 03/12/25 13:15 1 mg ONCE ONE Administration Protocol Hydromorphone HCl 1 mg 03/12/25 16:08 03/12/25 15:15 Hydromorphone Hcl 1 Mg/Ml Syringe IVPUSH 03/12/25 16:09 1 mg ONCE ONE Administration Protocol Hydromorphone HCl 1 mg 03/12/25 16:08 03/12/25 15:23 Hydromorphone Hcl 1 Mg/Ml Syringe IVPUSH 03/12/25 16:09 1 mg ONCE ONE Administration Protocol Ketorolac Tromethamine 15 mg 03/12/25 12:46 03/12/25 12:50 Ketorolac Tromethamine 15 Mg/Ml Vial IVPUSH 03/12/25 12:47 15 mg ONCE ONE Administration Ondansetron HCl 4 mg 03/12/25 16:08 03/12/25 16:15 Ondansetron Hcl 4 Mg/2 Ml Vial IVPUSH 03/12/25 16:09 4 mg ONCE ONE Administration Oxycodone HCl 5 mg 03/12/25 14:43 03/12/25 14:54 Oxycodone Hcl Immed Release 5 Mg Tablet PO 03/12/25 14:44 5 mg ONCE ONE Administration Medical Decision Making Differential Diagnosis Differential Diagnoses: The differential diagnosis associated with the presentation includes (Ankle fracture, dislocation, compartment syndrome, neurovascular compromise.) Admission/Observation Consideration of admission/observation: Escalation of care including admission/observation considered Consult Healthcare Provider Management of the patient was discussed with: Hospitalist (Bart Butcher) and Java Lead Engineer (Magalis Espinal) Lab Data MDM Lab Attestation statement: I reviewed the patient's lab results. ABG Data Attestation ABG: I personally reviewed and interpreted this ABG as follows: Independent Interpretation I performed an independent interpretation of an: Plain X-Ray (Left ankle:1. Acute fractures of the distal diaphysis of the fibula and the medial malleolus. 2. Asymmetric widening of the medial ankle mortise.) Radiology Impression Discussion of test interpretation with radiology: I have reviewed the radiologist's reading. Discharge Plan Discharge Clinical Impression: Ankle fracture, left, Intractable pain Patient Disposition: Admitted As Inpatient Print Language: Cook Islander
--- NOTE | 2025-03-12 12:57 | PC.NURSE ---
Pt to ED 8 from triage, reports left foot fracture from Wednesday while in [place]. Was seen at [facility] and [place] and has been having increased pain since. Assisted from w/c to stretcher and changed into hospital attire. 20G IV to R AC, medicated per JUL and MD at bedside. CHELLE wrap and foam removed from LLE. Large amount of swelling noted, + pulses and CMS intact. Awaiting x-ray...
[2025-03-12 13:28] VITALS: BP 118/67; PULSE 74; RESP 18; O2SAT 93
--- OUTSIDE RECORDS SUMMARY | 2025-03-12 14:29 | XMS_ITS | Encounter Summary ---
Author Organization [facility] Address [address] [facility] [address] [place] [phone] Phone Care Team Providers Care Rail Track Maintainer Name Role Phone Shayna Becerra NP Primary Care Provider + Encounter Details Date Type Department Care Team (Late st Contact Info) Description 03/11/2025 [place] [facility] [place] [address], Floor 1 [place] [address] Social History Tobacco Use Types Packs/Day Years Used Date Smoking Tobacco: Never Passive Smoke Exposure: Never Smokeless Tobacco: Never Alcohol Use Standard Drinks/Week Comments Yes 0 [...] on file documented as of this encounter Functional Status * Calculated C-SSRS Risk Score (Lifetime/Recent) Answer Date of Assessment Author No Risk Indicated 03/11/2025 7:37 AM EDT Mayuri Benedict RN * [place] Suicide Severity Rating Scale (Screener/Recent Self-Report) Question Answer Date of Assessment Author 1. Wish to be (Past 1 Month) No 025 7:37 AM EDT Mayuri Collins RN 2. Non-Specific Active Suici aileen Thoughts (Past 1 Month) No 03/11/2025 7:37 AM EDT Hema Collins RN 6. Suicidal Behavior (Lifetime) No 5 7:37 AM ESTIVENT Mayuri Collins RN documented as of this encounter Plan of Treatment Not on file documented as of this encounter Visit Diagnoses Not on filedocumented in this encounter Care Teams Rail Track Maintainer Relationship Specialty Start Date End Date Shayna Becerra NP [address] [facility] [address] [address] PCP - General Nurse Practitioner 03/10/25 documented as of this encounter Additional Source Comments The information contained in this document represents components of the legal health record. It is not the complete legal health record.[facility]
--- OUTSIDE RECORDS SUMMARY | 2025-03-12 14:29 | XMS_ITS | Clinical Summary ---
Author Organization [facility] Address [address] [place] [address] Care Team Providers Care Canoe Maker Name Role Phone Unavailable Primary Care Provider Unavailabl e Social History Tobacco Use Types Packs/Day Years Used Date Smoking Tobacco: Never Assessed Comments Unknown Sex and Gender Information Value Date Recorded Sex Assigned at Female 03/12/2025 10:23 AM EDT Legal Sex Female 10:21 AM EDT Gender Identity Not on file Sexual Orientation Other 03/12/2025 10 :23 AM EDT Plan of Treatment Health Maintenance Due Date Last Done Comments Hepatitis C Virus Screening 1977 HIV Screening 1990 DTaP/Tdap/Td Vaccines (1 - Tdap) 1996 Hepatitis B Vaccines (1 of 3 - 19+ 3-dose series) 1996 Pap Smear (Ages 21-65) 1998 Mammogram 2017 Colonoscopy 2022 Influenza Vaccine 12/29/2024 COVID-19 Vaccine (2023-2 5 season) 2025 Pneumococcal Vaccine: Pediat gael (0-5 Years) and At-Risk Patients (6 to 49 Years) Aged Out No longer eligible b ased on patient's age to complete this topic
--- OUTSIDE RECORDS SUMMARY | 2025-03-12 14:29 | XMS_ITS | Clinical Summary ---
Author Organization [facility] Address [address] [address] Phone Care Team Providers Care Batching Operator Name Role Phone Shayna Becerra NP Primary Care Provider + Allergies No known active allergies Medications oxyCODONE 5 MG immediate release tablet Take 1 tablet (5 mg total) by mouth every 6 (six) hours as needed for pain (specific location in comments). Partial fill ok 10 tablet 5 Active aspirin 81 mg chewable tablet Take 1 tablet (81 mg total) by mouth 2 (two) times a day. 60 tablet 5 Active aspirin 81 mg chewable tablet Take 1 tablet (81 mg total) by mouth 2 (two) times a day. 60 tablet 5 025 Discontinued aspirin 81 mg chewable tablet Take 1 tablet (81 mg total) by mouth 2 (two) times a day. 60 tablet 5 025 Discontinued Encounters Date Type Department Care Team Description 03/11/2025 [place] [facility] [place] [address] Floor 1 [place] [address] 03/10/2025 9:45 PM EDT - 03/11/2025 10:20 AM EDT Emergency [facility] [place] [address] [place] [phone] Emil Bloom MD Tasi, Fransisco Leija MD, EARLENE Jennings, Max Hooks MD Discharge Disposition: Home or Self Care from Last 3 Months Social History Tobacco Use Types Packs/Day Years [...] on file Sexual Orientation Not on file Last Filed Vital Signs Vital Sign Reading [...] - - Body Mass Index - - Plan of Treatment Health Maintenance Due Date Last Done Comments Adult Td,Tdap Booster 1977 LIPID PANEL 1977 DEPRESSION SCREENING 1989 HEPATITIS C SCREENING 1995 HIV ONE-TIME SCREENING (18-6 5 YEARS) 1995 PAP SMEAR 1998 SMOKING STATUS SCREENING (On ce After 26 Yrs) 2003 MAMMOGRAM 2017 COLOGUARD 2022 COLONOSCOPY 2022 COLORECTAL CANCER SCREENING 2022 FIT TEST 2022 FOBT 2022 SIGMOIDOSCOPY 2022 VIRTUAL COLONOSCOPY 2022 INFLUENZA VACCINE (#1) 2024 COVID-19 VACCINE (2024-2 6 season) 2025 HEPATITIS A VACCINES Aged Out No long er eligible based on patient's age to complete this topic HIB VACCINES Aged Out No longer eligi ble based on patient's age to complete this topic MENINGOCOCCAL VACCINES (ACWY) Aged Out No longer eligible based on patient's age to complete this topic MENINGOCOCCAL VACCINES (B) Aged Out N o longer eligible based on patient's age to complete this topic PNEUMOCOCCAL VACCINES (0-49 years) Aged Out No longer eligible based on patient's age to complete this topic Medical Devices Not on file Procedures Procedure Name Priority Date/Time Associated Diagnosis Comments CT ANKLE WITHOUT CONTRAST (LEFT) Routine 03/11/2025 6:53 AM EDT XR ANKLE 3 OR MORE VIEWS (LEFT) Routine 03/11/2025 5:45 AM EDT SEDATION Routine 03/11/2025 5:00 AM EDT XR ANKLE 3 OR MORE VIEWS (LEFT) Routine 03/11/2025 1:26 AM EDT XR TIBIA FIBULA 2 VIEWS (LEFT) Routine 03/10/2025 11:03 PM EDT XR ANKLE 3 OR MORE VIEWS (LEFT) Routine 03/10/2025 11:03 PM EDT XR FOOT 3 OR MORE VIEWS (LEFT) Routine 03/10/2025 11:03 PM EDT from Last 3 Months Results * CT ANKLE WITHOUT CONTRAST (LEFT) (03/11/2025 6:53 AM EDT) Anatomical Region Laterality Modality Ankle Left Computed Tomogra phy 03/11/2025 8:07 AM EDT Impressions 03/11/2025 8:18 AM EDT Cast multiple ankle fractures, including medial malleolar, posterior malleolar and distal fibular diaphyseal fractures as described. Narrative 03/11/2025 8:[address] ANKLE WITHOUT CONTRAST (LEFT) Referring clinician's provided indication for this examination in [facility]: * Ankle dislocation TECHNIQUE: Multidetector-row CT of [...] clinician's provided indication for this examination in [facility]: *Ankle dislocation TECHNIQUE: Multidetector-row CT of [...] original radiograph from 03/10/2025, although similar to priorsame day radiograph. * Mildly displaced fracture of [...] and distal fibular diaphyseal fractures as described. Fransisco Han MD, EARLENE ROGERS CT EXTREMITY Final Re sult * XR [...] clinician's provided indication for this examination in [facility]: Trauma; s/p reduction COMPARISON: XR ANKLE 3 OR MORE VIEWS (LEFT) 01:17:28.000 Procedure Note Clifford Kam MD - 03/11/2025 XR ANKLE 3 OR MORE VIEWS (LEFT) Referring clinician's provided indication for this examination in [facility]:Trauma; s/p reduction COMPARISON: XR ANKLE 3 OR MORE VIEWS (LEFT) 01:17:28.000 IMPRESSION: FINDINGS/IMPRESSION: Images obtained with overlying cast material which partially obscures bonydetail. Redemonstration of acute fractures of the medial malleolus and distalfibula. There is ongoing interval improvement in alignment of the fractures, withimproved distal tibiofibular alignment in comparison to prior. Tibiotalar alignment appears maintained. Fransisco Han MD, EARLENE ROGERS XR LOWER EXTREMITY Fi nal Result * [...] clinician's provided indication for this examination in [facility]: Fracture Follow Up COMPARISON: XR ANKLE 3 OR MORE VIEWS (LEFT) Procedure Note Clifford Kam MD - 03/11/2025 XR ANKLE 3 OR MORE VIEWS (LEFT) Referring clinician's provided indication for this examination in [facility]:Fracture Follow Up COMPARISON: XR ANKLE 3 OR MORE VIEWS (LEFT) IMPRESSION: FINDINGS/IMPRESSION: Images obtained with overlying cast material which partially obscures bonydetail. Redemonstration of acute fractures of the medial malleolus and distalfibula. Alignment is improved from prior. Mild persistent widening of the distaltibiofibular syndesmosis. Tibiotalar alignment appears grossly maintained. Fransisco Han MD, EARLENE IMElizabeth XR LOWER EXTREMITY Fi nal Result * XR FOOT 3 OR MORE VIEWS [...] clinician's provided indication for this examination in [facility]: Pain; fall, ankle tenderness. COMPARISON: FINDINGS: Tibia/fibula, [...] clinician's provided indication for this examination in [facility]: Pain; fall, ankle tenderness. COMPARISON: FINDINGS: Tibia/fibula, [...] clinician's provided indication for this examination in [facility]:Pain; fall, ankle tenderness. COMPARISON: FINDINGS: Tibia/fibula, foot, [...] LOWER EXTREMITY Final R esult * XR Tibia Fibula 2 Views (Left) [...] clinician's provided indication for this examination in [facility]: Pain; fall, ankle tenderness. COMPARISON: FINDINGS: Tibia/fibula, [...] tibiofibular syndesmosis and malalignment of the tibiotalarjoint. Emil Bloom MD IMG XR LOWER EXTREMITY Final R esult from Last 3 Months [employer] [id number] [employer] [facility] [employer] [phone] [employer] [facility] [employer] [address] [address] [employer] [facility] [employer] Care Teams Batching Operator Relationship Specialty Start Date End Date Shayna Becerra NP [address] [place] [address] PCP - General Nurse Practitioner 03/10/25 Additional Source Comments The information contained in this document represents components of the legal health record. It is not the complete legal health record.[facility]
--- OUTSIDE RECORDS SUMMARY | 2025-03-12 14:29 | XMS_ITS ---
Author Name [facility] Organization Unknown Care Team Organization Name Specialty Phone Email Start Date End [facility] 03/12/2025
[2025-03-12] MEDS: oxyCODONE HCl Immed Release 5 MG TABLET PO (14:54)
--- NOTE | 2025-03-12 15:15 | PC.NURSE ---
Assisted MD at bedside with EDT to apply cast to pt LLE. Pt crying out in pain with movement, per MD 1mg dilaudid given. Pt still unable to tolerate procedure, additional 1mg dilaudid given per MD. Cast applied and pt with + CMS.
[2025-03-12 15:27] VITALS: BP 110/62; PULSE 78; RESP 18; O2SAT 99
--- NOTE | 2025-03-12 17:17 | PM.IMHP ---
History of Present Illness Date of Service: 03/12/25 <Magalis Espinal MD - Last Filed: 03/12/25 17:30> Chief Complaint: intractable pain <Magalis Espinal MD - Last Filed: 03/12/25 17:30> 49-year-old woman presenting with left ankle pain. Patient had went out of town on Wednesday to visit with her family. She reported that she sat on a swing that was maybe 2 ft off the ground and when she went to get up she felt something pop in her left ankle. When she removed her shoe she noted that the foot was completely out of place. They found an ambulance that was close to where they were and she ended up in a [facility]. At the hospital it took 2 tries to reset the foot and patient had an extreme amount of pain. She was not admitted and decided to come back to [facility] to returned to her local hospital. In the ER her left ankle was recasted. She was given multiple doses of IV narcotic medications as well as oral narcotic medications with very minimal relief. Ankle x-ray did not note multiple fractures. Blood pressure is noted to be mildly elevated but that is likely due to pain. She will be placed on observation for intractable pain. <Suly Galindo NP - Last Filed: 03/12/25 19:17> Review of Systems Review of Systems: Denies any recent fever chills or decrease in appetite respiratory denies any shortness of breath or cough cardiovascular denied chest pain gastrointestinal denies any dysphagia abdominal pain nausea vomiting or diarrhea genitourinary denies any dysuria frequency or hematuria musculoskeletal casting to left ankle/foot neuropsych denies any weakness or seizures all other systems reviewed are negative <Suly Galindo NP - Last Filed: 03/12/25 19:17> [facility] Medical History: Medical History (Updated 03/12/25 @ 19:05 by Suly Galindo NP) No pertinent past medical history <Magalis Espinal MD - Last Filed: 03/12/25 17:30> Surgical History: Surgical History (Updated 03/12/25 @ 19:05 by Suly Galindo NP) No pertinent past surgical history <Magalis Espinal MD - Last Filed: 03/12/25 17:30> Social History: Social History Unable to assess alcohol history related to: Unknown Advance Directives: No Advance Directives Information Provided: No Do you have a plan to hurt others: No Plan <Magalis Espinal MD - Last Filed: 03/12/25 17:30> Meds Allergies/Adverse reactions: Allergies Allergy/AdvReac Type Severity Reaction Status Date / Time No Known Allergies Allergy Verified 03/12/25 12:36 <Magalis Espinal MD - Last Filed: 03/12/25 17:30> Home medications: Home Medications ?Medication ?Instructions ?Recorded ?Confirmed ?Last Taken ?Type aspirin 81 mg chewable tablet tab PO 03/12/25 Unknown History ibuprofen 800 mg tablet 800 mg PO Q8H PRN pain 03/12/25 Unknown History lorazepam 0.5 mg tablet 0.5 mg PO DAILY PRN Anxiety 03/12/25 Unknown History trazodone 50 mg tablet 75 mg PO BEDTIME 03/12/25 Unknown History <Magalis Espinal MD - Last Filed: 03/12/25 17:30> Physical Exam Vital Signs and Narrative: Vital Signs: Last Vital Signs Temp 98.2 F 03/12/25 12:32 Pulse 78 03/12/25 15:27 Resp 18 03/12/25 15:27 BP 110/62 03/12/25 15:27 Pulse Ox 99 03/12/25 15:27 O2 Del Method Room Air 03/12/25 15:27 BMI result Body Mass Index 27.3 <Magalis Espinal MD - Last Filed: 03/12/25 17:30> Appearing in pain head is normocephalic atraumatic eyes pupils are PERRLA sclera is anicteric mouth throat mucous membranes are intact and moist neck is supple no lymphadenopathy, no JVD noted lung normal expansion heart regular rate rhythm abd appearing non distended neuro patient is alert x3, no focal deficits <Suly Galindo NP - Last Filed: 03/12/25 19:17> Assessment and Plan (1) Intractable pain: Status: Acute <Magalis Espinal MD - Last Filed: 03/12/25 17:30> 49-year-old woman placed on observation for intractable pain secondary to trimalleolar fracture Intractable pain secondary to trimalleolar fracture Pain medication with IV Dilaudid, scheduled Toradol, oxycodone Valium, Robaxin for muscle pain Orthopedic surgery consultation, due to edema we will likely require surgery outpatient Elevate extremity, nonweightbearing regular diet DVT prophylaxis with lovenox full code <Suly Galindo NP - Last Filed: 03/12/25 19:17> Quality Stroke Does the patient have a stroke diagnosis?: No <Suly Galindo NP - Last Filed: 03/12/25 19:17> VTE Prior VTE?: No <Suly Galindo NP - Last Filed: 03/12/25 19:17> VTE Risk Level:: Medical - moderate - high <Suly Galindo NP - Last Filed: 03/12/25 19:17> VTE Device Contraindication: Treatment Not Indicated <Suly Galindo NP - Last Filed: 03/12/25 19:17> VTE Drug Contraindication: N/A - Med Ordered <Suly Galindo NP - Last Filed: 03/12/25 19:17>
--- NOTE | 2025-03-12 17:59 | HO.NURTONUR ---
Lynda 49 yo female, full code with NKA came in to ED with c/o of pain/numbness after being treated in [place] on Wednesday for left ankle fracture. Splint removed on arrival, xray done. No concerns for compartment syndrome. + CMS, bruising noted to anterior portion of ankle. Pt endorsing 10/10 pain, given total of 4mg dilaudid, po oxycodone and zofran in ED for pt to have splint re applied. Pt is A/O x 3, 20G IV to Right AC. Needed assist x 2 from w/c to stretcher.
--- NOTE | 2025-03-12 18:07 | ECG_ITS ---
Test Reason : L ANKLE # Blood Pressure : */* mmHG Vent. Rate : 61 BPM Atrial Rate : 61 BPM P-R Int : 138 ms QRS Dur : 82 ms QT Int : 406 ms P-R-T Axes : 18 34 19 degrees QTcB Int : 408 ms Normal sinus rhythm Normal ECG No previous ECGs available Referred By: Magalis Espinal Electronically Signed By: Jan Whitehead
[2025-03-12 19:39] LABS: Hematocrit 41.2 % (37.0-47.0); Hemoglobin 13.8 g/dl (12.0-16.0); Mean Corpuscular HGB Conc 33.5 g/dl (31.0-35.0); Mean Corpuscular Hemoglobin 30.4 pg (27.0-33.0); Mean Corpuscular Volume 90.7 fL (80.0-98.0); NRBC Abs Auto 0.000 X10*3/uL (0.0-0.012); NRBC Pct Auto 0.0 /100WBC (0.0-0.2); Platelet Count 357 X10*3/uL (160-400); Red Blood Count 4.54 X10*6/uL (4.20-5.50); White Blood Count 10.2 X10*3/uL (4.8-10.8)
[2025-03-12 19:52] LABS: Anion Gap 12 (12-20); Blood Urea Nitrogen 14 mg/dL (9-16); Calcium 8.6 mg/dL (8.4-10.2); Carbon Dioxide 22 mmol/L (22-29); Chloride 109 mmol/L (96-108); Creatinine Clr Calc Pharmacy 96.4; Estimated Glomerular Filt Rate > 60; Potassium 3.8 mmol/L (3.3-5.1); Sodium 139 mmol/L (135-145)
[2025-03-12] MEDS: 0.9 % Sodium Chloride Flush 3 ML SYRINGE IVFLUSH (19:52)
[2025-03-12 22:00] VITALS: BP 125/61; PULSE 66; RESP 18; TEMP 36.3; O2SAT 96
[2025-03-13 00:46] LABS: UPreg QC Valid YES
[2025-03-13 04:00] VITALS: BP 116/60; PULSE 75; RESP 18; TEMP 36.5; O2SAT 98
[2025-03-13] MEDS: oxyCODONE HCl Immed Release 5 MG TABLET PO (05:52)
--- NOTE | 2025-03-13 07:20 | P.PNIM_ITS ---
Subjective Subjective Date of Service: 03/13/25 Interval History: Patient to undergo left ankle ORIF in the a.m. Patient to be NPO from midnight Review of Systems Review of Systems: Yes all other systems are reviewed and are negative Physical Exam 2 Exam: Exam: General: AOx3, appears to be in significant pain, now needing escalating doses of pain meds Resp: CTA bilaterally CVS: S1, S2, RRR GI: +BS, NT, no distention Skin: Warm, dry Neuro: Cranial nerves II-XII grossly intact bilaterally. Motor grossly intact bilaterally Extremities: Left ankle was in a cast, ortho was likely to examined the patient's foot Vital Signs: Vital Signs: Last Vital Signs Temp 97.7 F 03/13/25 04:00 Pulse 75 03/13/25 04:00 Resp 18 03/13/25 04:00 BP 116/60 03/13/25 04:00 Pulse Ox 98 03/13/25 04:00 O2 Del Method Room Air 03/13/25 04:00 BMI result Body Mass Index 27.3 Objective Data Active Medications Acetaminophen (Acetaminophen 325 Mg Tablet) 975 mg PO Q6H [facility] Last Admin: 03/13/25 05:50 Dose: 975 mg Documented By: CARLEEN Hydrocodone Bitart/Acetaminophen (Hydrocodone Bit/Acetam 5/325 Tablet) 1 tab PO Q4H PRN PRN Reason: Pain, Moderate(Pain Scale 4-6) Calcium Carbonate (Calcium Carbonate 750 Mg Tab.Chew) 750 mg PO Q4H PRN PRN Reason: Heartburn Diazepam (Diazepam 10 Mg/2 Ml Cartridge) 10 mg IVPUSH Q8H PRN PRN Reason: Anxiety Docusate Sodium (Docusate Sodium 100 Mg Capsule) 100 mg PO BID [facility] Last Admin: 03/12/25 19:51 Dose: 100 mg Documented By: CARLEEN Enoxaparin Sodium (Enoxaparin Sodium 40 Mg/0.4 Ml Syringe) 40 mg SUBCUT Q24H [facility] Last Admin: 03/12/25 20:42 Dose: 40 mg Documented By: CARLEEN Ketorolac Tromethamine (Ketorolac Tromethamine 30 Mg/Ml Vial) 30 mg IVPUSH Q6H [facility] Last Admin: 03/13/25 06:31 Dose: 30 mg Documented By: CARLEEN Magnesium Hydroxide (Milk Of Magnesia 30 Ml Oral.Susp) 30 ml PO DAILY PRN PRN Reason: Constipation Melatonin (Melatonin 3 Mg Tablet) 6 mg PO BEDTIME PRN PRN Reason: Insomnia Methocarbamol (Methocarbamol 750 Mg Tablet) 750 mg PO TID [facility] Last Admin: 03/12/25 19:50 Dose: 750 mg Documented By: CARLEEN Morphine Sulfate (Morphine Sulfate 2 Mg/Ml Cartridge) 2 mg IVPUSH Q4H PRN; Protocol PRN Reason: Pain, Severe (Pain Scale 7-10) Last Admin: 03/13/25 04:01 Dose: 2 mg Documented By: CARLEEN Naloxone HCl (Naloxone Hcl 0.4 Mg/Ml Vial) 0.1 mg IVPUSH Q2M PRN PRN Reason: Respiratory Rate < 10 Omeprazole (Omeprazole 20 Mg Capsule.Dr) 20 mg PO BID@0630,1630 [facility] Last Admin: 03/13/25 05:50 Dose: 20 mg Documented By: CARLEEN Ondansetron HCl (Ondansetron Hcl 4 Mg/2 Ml Vial) 4 mg IVPUSH Q8H PRN PRN Reason: Nausea and Vomiting Oxycodone HCl (Oxycodone Hcl Immed Release 5 Mg Tablet) 5 mg PO Q4H PRN PRN Reason: Pain, Severe (Pain Scale 7-10) Last Admin: 03/13/25 05:52 Dose: 5 mg Documented By: CARLEEN Polyethylene Glycol (Polyethylene Glycol 3350 17 Gm Powd.Pack) 17 gm PO DAILY PRN PRN Reason: Constipation Senna (Sennosides 8.6 Mg Tablet) 17.2 mg PO BEDTIME [facility] Last Admin: 03/12/25 19:51 Dose: 17.2 mg Documented By: CARLEEN Sodium Chloride (0.9 % Sodium Chloride Flush 3 Ml Syringe) 3 ml IVFLUSH QSHIFT [facility] Last Admin: 03/12/25 19:52 Dose: 3 ml Documented By: CARLEEN Labs 03/12/25 19:31 03/12/25 19:31 Labs: Laboratory Results - last 24 hr 03/12/25 03/12/25 19:15 19:31 MCV 90.7 MCH 30.4 MCHC 33.5 RDW 12.9 Plt Count 357 MPV 8.6 L Absolute Nucleated RBC 0.000 Nucleated RBC % (auto) 0.0 Anion Gap 12 Estim Creat Clear Calc 96.4 Estimated GFR > 60 Random Glucose 117 H Calcium 8.6 Urine Test NEGATIVE Assessment and Plan (1) Ankle fracture, left: Status: Acute Plan 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 meds. Orthopedics consulted the a.m. of 03/13/2025. Per Orthopedics-she will likely undergo ORIF in the a.m. by Dr. Haynes Patient in significant pain-hence necessitating aggressive pain medication- scheduled Tylenol Robaxin lidocaine OxyContin oxycodone Ketoralac Dilaudid Patient reportedly had an unclear reaction likely secondary to contact dermatitis hence diphenhydramine is also being ordered DVT prophylaxis with Lovenox Aggressive bowel regimen to prevent constipation Rest, elevation and symptomatic regimen in the meantime For sleep hygiene-continue home trazodone Quality Stroke Does the patient have a stroke diagnosis?: No VTE Prior VTE?: No VTE Risk Level:: Medical - moderate - high VTE Device Contraindication: Treatment Not Indicated VTE Drug Contraindication: N/A - Med Ordered
[2025-03-13 07:28] VITALS: BP 108/59; PULSE 60; RESP 14; TEMP 36.2; O2SAT 97
[2025-03-13] MEDS: 0.9 % Sodium Chloride Flush 3 ML SYRINGE IVFLUSH ×2 (08:11→14:42)
[2025-03-13] MEDS: oxyCODONE HCl ER 10 MG TAB.ER.12H PO ×2 (08:50→20:14)
[2025-03-13] MEDS: Milk of Magnesia 30 ML ORAL.SUSP 15 ML PO ×2 (10:38→21:16)
--- NOTE | 2025-03-13 10:40 | PM.CNOR ---
History of Present Illness HPI Consult date: 03/13/25 <Steffany Wright PA-C - Last Filed: 03/13/25 10:47> Chief complaint: Left ankle fracture <Steffany Wright PA-C - Last Filed: 03/13/25 10:47> Narrative: 49-year-old female admitted to the medical service after sustaining a left ankle fracture on 03/10/25. Patient had went out of town on Wednesday to visit with her family. She reported that she sat on a swing that was maybe 2 ft off the ground and when she went to get up she felt something pop in her left ankle. When she removed her shoe she noted that the foot was completely out of place. She was seen in the ED in [place] where they attempted reduction and placed her in a splint and discharged her as she lives here in [facility]. She presented to [facility] ED due to continued pain, while in the ER at [facility], she had another reduction and the ankle was placed in a splint and she was admitted to the medical service for observation due to uncontrolled pain. orthopedics was contacted for further recommendations. She works as a Nurse at [employer]. She lives at home with her two children. <Steffany Wright PA-C - Last Filed: 03/13/25 10:47> Review of Systems Review of Systems: Yes all other systems are reviewed and are negative <Steffany Wright PA-C - Last Filed: 03/13/25 10:47> PMFSH Past Medical History Medical History: Medical History (Updated 03/14/25 @ 07:17 by Esther Vidal RN) Labral tear of hip joint <Steffany Wright PA-C - Last Filed: 03/13/25 10:47> Surgical History Surgical History: Surgical History (Updated 03/14/25 @ 07:17 by Esther Vidal RN) Hx of cholecystectomy <Steffany Wright PA-C - Last Filed: 03/13/25 10:47> Social History Social History: Social History Household Members: Children Housing: House Do you presently have visiting nurse or other home services: No Unable to assess alcohol history related to: Unknown Patient Tobacco Use Status: Never used Tobacco Use of substances other than those prescribed or required for medical reasons: No Currently Displaying Signs/Symptoms of Drug Intoxication Withdrawal: No Have you been hit, kicked, punched, or otherwise hurt by someone within the past year? If so, by whom?: No Do you feel safe in your current relationship?: No Current Relationship Is there a partner from a previous relationship who is making you feel unsafe now?: No Are you made to feel afraid or neglected: No Are you DNR?: No Advance Directives: No Advance Directives Information Provided: No Do you have a plan to hurt others: No Plan Recently lost weight without trying: No How much weight loss: Not applicable Eating poorly because of decreased appetite: No Nutrition screen score: 0 Nutrition Risks: No Nutritional Risk Patient : No : No Poor oral hygiene: No service: No <Steffany Wright PA-C - Last Filed: 03/13/25 10:47> Meds Allergies/Adverse reactions: Allergies Allergy/AdvReac Type Severity Reaction Status Date / Time hydromorphone (From Dilaudid) Allergy Intermediate Itching Verified 03/12/25 23:14 <Steffany Wright PA-C - Last Filed: 03/13/25 10:47> Active Medications: Current Medications Acetaminophen (Acetaminophen 325 Mg Tablet) 975 mg PO Q6H [facility] On Hold: 03/13/25 09:57 Last Admin: 03/13/25 05:50 Dose: 975 mg Hydrocodone Bitart/Acetaminophen (Hydrocodone Bit/Acetam 5/325 Tablet) 1 tab PO Q4H PRN PRN Reason: Pain, Moderate(Pain Scale 4-6) Calcium Carbonate (Calcium Carbonate 750 Mg Tab.Chew) 750 mg PO Q4H PRN PRN Reason: Heartburn Diazepam (Diazepam 10 Mg/2 Ml Cartridge) 10 mg IVPUSH Q8H PRN PRN Reason: Anxiety Diphenhydramine HCl (Diphenhydramine Hcl 25 Mg Capsule) 25 mg PO Q4H PRN PRN Reason: Itching Docusate Sodium (Docusate Sodium 100 Mg Capsule) 100 mg PO BID [facility] Last Admin: 03/13/25 08:11 Dose: 100 mg Enoxaparin Sodium (Enoxaparin Sodium 40 Mg/0.4 Ml Syringe) 40 mg SUBCUT Q24H [facility] Last Admin: 03/12/25 20:42 Dose: 40 mg Hydromorphone HCl (Hydromorphone Hcl 1 Mg/Ml Syringe) 1 mg IVPUSH Q4H PRN; Protocol PRN Reason: Pain, Severe (Pain Scale 7-10) Last Admin: 03/13/25 08:12 Dose: 1 mg Acetaminophen (Ofirmev) 1,000 mg in 100 mls @ 400 mls/hr IV Q6H [facility] Stop: 03/14/25 05:14 Last Admin: 03/13/25 10:38 Dose: 400 mls/hr Magnesium Hydroxide (Milk Of Magnesia 30 Ml Oral.Susp) 15 ml PO BID [facility] Last Admin: 03/13/25 10:38 Dose: 15 ml Melatonin (Melatonin 3 Mg Tablet) 6 mg PO BEDTIME [facility] Methocarbamol (Methocarbamol 750 Mg Tablet) 750 mg PO TID [facility] Last Admin: 03/13/25 08:11 Dose: 750 mg Naloxone HCl (Naloxone Hcl 0.4 Mg/Ml Vial) 0.1 mg IVPUSH Q2M PRN PRN Reason: Respiratory Rate < 10 Omeprazole (Omeprazole 20 Mg Capsule.Dr) 20 mg PO BID@0630,1630 [facility] Last Admin: 03/13/25 05:50 Dose: 20 mg Ondansetron HCl (Ondansetron Hcl 4 Mg/2 Ml Vial) 4 mg IVPUSH Q8H PRN PRN Reason: Nausea and Vomiting Oxycodone HCl (Oxycodone Hcl Er 10 Mg Tab.Er.12h) 10 mg PO BID [facility] Last Admin: 03/13/25 08:50 Dose: 10 mg Oxycodone HCl (Oxycodone Hcl Immed Release 5 Mg Tablet) 5 mg PO Q4H PRN PRN Reason: Pain, Moderate(Pain Scale 4-6) Polyethylene Glycol (Polyethylene Glycol 3350 17 Gm Powd.Pack) 17 gm PO DAILY PRN PRN Reason: Constipation Last Admin: 03/13/25 08:23 Dose: 17 gm Senna (Sennosides 8.6 Mg Tablet) 17.2 mg PO BEDTIME [facility] Last Admin: 03/12/25 19:51 Dose: 17.2 mg Sodium Chloride (0.9 % Sodium Chloride Flush 3 Ml Syringe) 3 ml IVFLUSH QSHIFT [facility] Last Admin: 03/13/25 08:11 Dose: 3 ml Trazodone HCl (Trazodone Hcl 25 Mg Halftab) 75 mg PO BEDTIME [facility] <Steffany Wright PA-C - Last Filed: 03/13/25 10:47> Home medications: Home Medications ?Medication ?Instructions ?Recorded ?Confirmed ?Last Taken ?Type ibuprofen 800 mg tablet 800 mg PO Q8H PRN pain 03/12/25 03/13/25 03/11/25 History lorazepam 0.5 mg tablet 0.5 mg PO DAILY PRN Anxiety 03/12/25 03/13/25 03/11/25 History trazodone 50 mg tablet 75 mg PO BEDTIME 03/12/25 03/13/25 03/11/25 History ascorbic acid (vitamin C) 500 mg 500 mg PO BEDTIME 03/13/25 03/13/25 03/11/25 History tablet (Vitamin C) docusate sodium 100 mg tablet 100 mg PO BEDTIME 03/13/25 03/13/25 03/11/25 History magnesium 250 mg tablet 500 mg PO BEDTIME 03/13/25 03/13/25 Unknown History gcrwcbou-cyyf-taq-folic acid 18 1 tab PO BEDTIME 03/13/25 03/13/25 03/11/25 History mg-0.4 mg tablet (One Daily For Women) zinc 50 mg capsule 50 mg PO DAILY 03/13/25 03/13/25 03/11/25 History <Steffany Wright PA-C - Last Filed: 03/13/25 10:47> Physical Exam Vital Signs: Vital Signs: Last Vital Signs Temp 97.1 F 03/13/25 07:28 Pulse 60 03/13/25 07:28 Resp 14 03/13/25 07:28 BP 108/59 L 03/13/25 07:28 Pulse Ox 97 03/13/25 07:28 O2 Del Method Room Air 03/13/25 07:28 BMI result Body Mass Index 27.3 <MARGA Rodriguez Last Filed: 03/13/25 10:47> Const: General: cooperative, healthy appearing, comfortable and no acute distress <Steffany Wright PA-C - Last Filed: 03/13/25 10:47> Orientation/consciousness: patient oriented x3 <Steffany Wright DARIEN - Last Filed: 03/13/25 10:47> HEENT: Head: Yes normal to inspection and Yes atraumatic <Steffany Wright MARGA - Last Filed: 03/13/25 10:47> Ears: hearing grossly normal bilaterally <BELEN Rodriguez - Last Filed: 03/13/25 10:47> Eyes: General: appearance normal, both eyes and all related structures <Steffany Wright BELEN - Last Filed: 03/13/25 10:47> Neck: Neck: Yes normal visual inspection and Yes no lymphadenopathy <Steffany Wright AMRGA - Last Filed: 03/13/25 10:47> Resp: Effort & Inspection: normal respiratory effort and able to speak in complete sentences <Steffany Wright DARIEN - Last Filed: 03/13/25 10:47> Cardio: Peripheral pulses: Peripheral pulses 2+ throughout <Steffany Wright DARIEN - Last Filed: 03/13/25 10:47> Neuro: General: patient oriented x3 <Steffany Wright BELEN - Last Filed: 03/13/25 10:47> Extrem: Other: Left ankle skin intact Moderate swelling There is a bony prominence to the medial mal, no open wounds or skin break down Tenderness along the lateral mal and syndesmosis NVI <Steffany Wright BELEN - Last Filed: 03/13/25 10:47> Psych: Appearance: well kempt <Steffany Wright BELEN - Last Filed: 03/13/25 10:47> Results Labs Result Diagrams: 03/14/25 05:49 03/14/25 05:49 <Steffany Baumcristóbal DARIEN - Last Filed: 03/13/25 10:47> Labs: Abnormal lab results 03/12/25 Range/Units 19:31 MPV 8.6 L (9.4-12.3) fL Chloride 109 H (96-108) mmol/L Random Glucose 117 H (60-115) mg/dL H & H 03/12/25 Range/Units 19:31 Hgb 13.8 (12.0-16.0) g/dl Hct 41.2 (37.0-47.0) % All other labs normal. <Steffany Wright PA-C - Last Filed: 03/13/25 10:47> Diagnostic results Ankle/Foot x-ray: image reviewed (IMPRESSION: 1. Acute fractures of the distal diaphysis of the fibula and the medial malleolus. 2. Asymmetric widening of the medial ankle mortise.) <Steffany Wright PA-C - Last Filed: 03/13/25 10:47> Assessment and Plan (1) Ankle fracture, left: Status: Acute <Steffany Wright PA-C - Last Filed: 03/13/25 10:47> Ms Baca has a left ankle fracture which would benefit from surgical intervention for optimal functioning. The patient does understand nonsurgical intervention would result in significantly limited function, potential joint collapse and post traumatic OA and chronic pain. Given the patient's activity level and she does weight bear at baseline, it would be recommended to pursue surgical intervention. We discussed the procedure in detail along with the risks benefits and alternatives. Risks including but not limited to infection, injury to surrounding nerves and tissue and bone, small and large vessels, stiffness,need for further surgery, DVT/PE along with intraoperative complications including but not limited to mortality. We discussed postoperative recovery which includes NWB LLE x6 weeks in a cast followed by 6 weeks in a Walking boot with PT. The patient does express understanding and would like to proceed with ORIF left ankle with Dr. Haynes. The patient will be NPO after midnight and booked accordingly. <Steffany Wright PA-C - Last Filed: 03/13/25 10:47> Procedures Date of Service Date of Service: 03/13/25 <Steffany Wright PA-C - Last Filed: 03/13/25 10:47> 03/13/25 <Magalis Espinal MD - Last Filed: 03/13/25 19:23> 03/14/25 <Chilo Haynes MD - Last Filed: 03/14/25 07:33>
--- NOTE | 2025-03-13 12:21 | MHC.CM.PN ---
MUREIL delivered. Patient lives in a home w/ adult daughter & son. Functionally independent. Denies use of DME or services. PCP Shayna Becerra Completed HCP naming [facility] 1) son Jameel and 2) daughter Desiree. DP: Awaiting surgery. PT rec home w/ family support & has supplies crutches. CM will continue to follow.
--- NOTE | 2025-03-13 12:32 | PHA.MEDREC ---
Addendum entered by Nayan Thomson RPh 03/13/25 13:05: Reviewed by [facility] Original Note: Pharmacy Consult ? Medication Reconciliation Pharmacy has completed the medication reconciliation. Patient was able to name all of her medications. Patient states she is no longer taking Aspirin 81 mg. Patient last had her medications Wednesday03/11/25.
--- NOTE | 2025-03-13 13:21 | P.CONAN_ITS ---
Documented by User: Nhung Ferrer NP 03/13/25 13:24 HPI - Anesthesia Eval Consult details Narrative: 49 yr old female for left Ankle Fracture ORIF PMFSH Active Problems Active Problems: All Active Problems (Updated 03/12/25 @ 19:05 by Suly Galindo NP) Intractable pain (Acute) Ankle fracture, left (Acute) Past Medical History Medical History (Updated 03/14/25 @ 07:17 by Esther Vidal RN) Labral tear of hip joint Surgical History Surgical History (Updated 03/14/25 @ 07:17 by Esther Vidal RN) Hx of cholecystectomy Social History Social History Household Members: Children Housing: House Do you presently have visiting nurse or other home services: No Unable to assess alcohol history related to: Unknown Patient Tobacco Use Status: Never used Tobacco Use of substances other than those prescribed or required for medical reasons: No Currently Displaying Signs/Symptoms of Drug Intoxication Withdrawal: No Have you been hit, kicked, punched, or otherwise hurt by someone within the past year? If so, by whom?: No Do you feel safe in your current relationship?: No Current Relationship Is there a partner from a previous relationship who is making you feel unsafe now?: No Are you made to feel afraid or neglected: No Are you DNR?: No Advance Directives: No Advance Directives Information Provided: No Do you have a plan to hurt others: No Plan Recently lost weight without trying: No How much weight loss: Not applicable Eating poorly because of decreased appetite: No Nutrition screen score: 0 Nutrition Risks: No Nutritional Risk Patient : No : No Poor oral hygiene: No service: No Meds Allergies Allergy/AdvReac Type Severity Reaction Status Date / Time hydromorphone (From Dilaudid) Allergy Intermediate Itching Verified 03/12/25 23:14 Active Medications: Current Medications Acetaminophen (Acetaminophen 325 Mg Tablet) 975 mg PO Q6H [facility] On Hold: 03/13/25 09:57 Last Admin: 03/13/25 05:50 Dose: 975 mg Hydrocodone Bitart/Acetaminophen (Hydrocodone Bit/Acetam 5/325 Tablet) 1 tab PO Q4H PRN PRN Reason: Pain, Moderate(Pain Scale 4-6) Calcium Carbonate (Calcium Carbonate 750 Mg Tab.Chew) 750 mg PO Q4H PRN PRN Reason: Heartburn Diazepam (Diazepam 10 Mg/2 Ml Cartridge) 10 mg IVPUSH Q8H PRN PRN Reason: Anxiety Diphenhydramine HCl (Diphenhydramine Hcl 25 Mg Capsule) 25 mg PO Q4H PRN PRN Reason: Itching Docusate Sodium (Docusate Sodium 100 Mg Capsule) 100 mg PO BID [facility] Last Admin: 03/13/25 08:11 Dose: 100 mg Enoxaparin Sodium (Enoxaparin Sodium 40 Mg/0.4 Ml Syringe) 40 mg SUBCUT Q24H [facility] Last Admin: 03/12/25 20:42 Dose: 40 mg Hydromorphone HCl (Hydromorphone Hcl 1 Mg/Ml Syringe) 1 mg IVPUSH Q4H PRN; Protocol PRN Reason: Pain, Severe (Pain Scale 7-10) Last Admin: 03/13/25 12:32 Dose: 1 mg Acetaminophen (Ofirmev) 1,000 mg in 100 mls @ 400 mls/hr IV Q6H [facility] Stop: 03/14/25 05:14 Last Infusion: 03/13/25 11:37 Dose: Infused Magnesium Hydroxide (Milk Of Magnesia 30 Ml Oral.Susp) 15 ml PO BID [facility] Last Admin: 03/13/25 10:38 Dose: 15 ml Melatonin (Melatonin 3 Mg Tablet) 6 mg PO BEDTIME [facility] Methocarbamol (Methocarbamol 750 Mg Tablet) 750 mg PO TID [facility] Last Admin: 03/13/25 08:11 Dose: 750 mg Naloxone HCl (Naloxone Hcl 0.4 Mg/Ml Vial) 0.1 mg IVPUSH Q2M PRN PRN Reason: Respiratory Rate < 10 Omeprazole (Omeprazole 20 Mg Capsule.Dr) 20 mg PO BID@0630,1630 [facility] Last Admin: 03/13/25 05:50 Dose: 20 mg Ondansetron HCl (Ondansetron Hcl 4 Mg/2 Ml Vial) 4 mg IVPUSH Q8H PRN PRN Reason: Nausea and Vomiting Oxycodone HCl (Oxycodone Hcl Er 10 Mg Tab.Er.12h) 10 mg PO BID [facility] Last Admin: 03/13/25 08:50 Dose: 10 mg Oxycodone HCl (Oxycodone Hcl Immed Release 5 Mg Tablet) 5 mg PO Q4H PRN PRN Reason: Pain, Moderate(Pain Scale 4-6) Polyethylene Glycol (Polyethylene Glycol 3350 17 Gm Powd.Pack) 17 gm PO DAILY PRN PRN Reason: Constipation Last Admin: 03/13/25 08:23 Dose: 17 gm Senna (Sennosides 8.6 Mg Tablet) 17.2 mg PO BEDTIME [facility] Last Admin: 03/12/25 19:51 Dose: 17.2 mg Sodium Chloride (0.9 % Sodium Chloride Flush 3 Ml Syringe) 3 ml IVFLUSH QSHIFT [facility] Last Admin: 03/13/25 08:11 Dose: 3 ml Trazodone HCl (Trazodone Hcl 25 Mg Halftab) 75 mg PO BEDTIME [facility] Home Medications ?Medication ?Instructions ?Recorded ?Confirmed ?Last Taken ?Type ibuprofen 800 mg tablet 800 mg PO Q8H PRN pain 03/1203/13/25 03/11/25 History lorazepam 0.5 mg tablet 0.5 mg PO DAILY PRN Anxiety 03/12/25 03/13/25 03/11/25 History trazodone 50 mg tablet 75 mg PO BEDTIME 03/12/2503/11/25 History ascorbic acid (vitamin C) 500 mg 500 mg PO BEDTIME 03/13/25 03/11/25 History tablet (Vitamin C) docusate sodium 100 mg tablet 100 mg PO BEDTIME 03/13/25 03/11/25 History magnesium 250 mg tablet 500 mg PO BEDTIME 03/13/25 1 Unknown History actsppxw-ibig-kjq-folic acid 18 1 tab PO BEDTIME 03/1303/13/25 03/11/25 History mg-0.4 mg tablet (One Daily For Women) zinc 50 mg capsule 50 mg PO DAILY 03/13/2502/2803/11/25 History Exam Height,Weight and Vital Signs: Height 5 ft Weight 63.503 kg Last Vital Signs Temp 97.1 F 03/13/25 07:28 Pulse 60 03/13/25 07:28 Resp 14 03/13/25 07:28 BP 108/59 L 03/13/25 07:28 Pulse Ox 97 03/13/25 07:28 O2 Del Method Room Air 03/13/25 07:28 Pertinent Lab Results Pertinent Lab Results: Laboratory Tests 03/12/25 03/12/25 19:15 19:31 WBC 10.2 RBC 4.54 Hgb 13.8 Hct 41.2 MCV 90.7 MCH 30.4 MCHC 33.5 RDW 12.9 Plt Count 357 MPV 8.6 L Absolute Nucleated RBC 0.000 Nucleated RBC % (auto) 0.0 Sodium 139 Potassium 3.8 Chloride 109 H Carbon Dioxide 22 Anion Gap 12 BUN 14 Creatinine 0.60 Estim Creat Clear Calc 96.4 Estimated GFR > 60 Random Glucose 117 H Calcium 8.6 Urine Test NEGATIVE Narrative Narrative: EKG 03/12/25 Vent. Rate : 61 BPM Atrial Rate : 61 BPM P-R Int : 138 ms QRS Dur : 82 ms QT Int : 406 ms P-R-T Axes : 18 34 19 degrees QTcB Int : 408 ms Normal sinus rhythm Normal ECG No previous ECGs available Documented by User: Norma Linton MD 03/14/25 08:04 [facility] Past Medical History Medical History (Updated 03/14/25 @ 07:17 by Esther Vidal RN) Labral tear of hip joint Family History Family history of problems with anesthesia: No Surgical History Surgical History (Updated 03/14/25 @ 07:17 by Esther Vidal RN) Hx of cholecystectomy History of Problems with Anesthesia: No Social History Social History Household Members: Children Housing: House Do you presently have visiting nurse or other home services: No Unable to assess alcohol history related to: Unknown Patient Tobacco Use Status: Never used Tobacco Use of substances other than those prescribed or required for medical reasons: No Currently Displaying Signs/Symptoms of Drug Intoxication Withdrawal: No Have you been hit, kicked, punched, or otherwise hurt by someone within the past year? If so, by whom?: No Do you feel safe in your current relationship?: No Current Relationship Is there a partner from a previous relationship who is making you feel unsafe now?: No Are you made to feel afraid or neglected: No Are you DNR?: No Advance Directives: No Advance Directives Information Provided: No Do you have a plan to hurt others: No Plan Recently lost weight without trying: No How much weight loss: Not applicable Eating poorly because of decreased appetite: No Nutrition screen score: 0 Nutrition Risks: No Nutritional Risk Patient : No : No Poor oral hygiene: No service: No Meds Allergies Allergy/AdvReac Type Severity Reaction Status Date / Time hydromorphone (From Dilaudid) Allergy Intermediate Itching Verified 03/12/25 23:14 Home Medications ?Medication ?Instructions ?Recorded ?Confirmed ?Last Taken ?Type ibuprofen 800 mg tablet 800 mg PO Q8H PRN pain 03/1203/13/25 03/11/25 History lorazepam 0.5 mg tablet 0.5 mg PO DAILY PRN Anxiety 03/12/25 03/13/25 03/11/25 History trazodone 50 mg tablet 75 mg PO BEDTIME 03/12/2503/11/25 History ascorbic acid (vitamin C) 500 mg 500 mg PO BEDTIME 03/13/25 03/11/25 History tablet (Vitamin C) docusate sodium 100 mg tablet 100 mg PO BEDTIME 03/13/25 03/11/25 History magnesium 250 mg tablet 500 mg PO BEDTIME 03/13/25 1 Unknown History qwnyfzcs-jhco-xih-folic acid 18 1 tab PO BEDTIME 03/1303/13/25 03/11/25 History mg-0.4 mg tablet (One Daily For Women) zinc 50 mg capsule 50 mg PO DAILY 03/13/2502/2803/11/25 History Exam Airway Mallampati Class: II TM Dist: >3cm Neck ROM: Full Heart: rrr Lungs: cta Assessment and Plan Assessment Anesthesia Assessment: Anesthesia Plan Discussed and Chart Reviewed Final Anesthetic Review Family History of Problems with Anesthesia: No History of Problems with Anesthesia: No NPO: Yes ASA Class: II Final Preanesthetic Review: No Changes in Pt Med Stat, Meds/Allgs Chart Reviewed, Consent Obtained/Reviewed and Anes Risks/Benef Reviewed Patient Risk: Low Procedure Risk: Intermediate Anesthetic Plan Anesthetic Plan: GA, Regional Block and Agree w/ Assess. and Plan Disposition: Standard PACU
[2025-03-13 15:10] VITALS: PULSE 66; RESP 16; TEMP 36.4; O2SAT 96
[2025-03-13 19:02] VITALS: BP 109/67; PULSE 75; RESP 16; TEMP 36.2; O2SAT 97
[2025-03-13] MEDS: traZODone HCL 25 MG HALFTAB 75 MG PO (21:10)
[2025-03-14] VITALS (13 sets, daily range): BP systolic 109–151; BP diastolic 53–80; PULSE 65–104; RESP 12–18; TEMP 36.1–37.7; O2SAT 95–99
[2025-03-14 06:24] LABS: MANUAL DIFF FLAG NO
[2025-03-14 06:30] LABS: Hematocrit 40.5 % (37.0-47.0); Hemoglobin 13.4 g/dl (12.0-16.0); Imm Gran Abs Auto 0.02 X10*3/uL (0.00-0.03); Imm Gran Pct Auto 0.3 % (0.0-0.4); Lymphocytes Absolute Auto 2.0 X10*3/uL (1.2-4.9); Mean Corpuscular HGB Conc 33.1 g/dl (31.0-35.0); Mean Corpuscular Hemoglobin 30.5 pg (27.0-33.0); Mean Corpuscular Volume 92.0 fL (80.0-98.0); NRBC Abs Auto 0.000 X10*3/uL (0.0-0.012); NRBC Pct Auto 0.0 /100WBC (0.0-0.2); Platelet Count 358 X10*3/uL (160-400); Red Blood Count 4.40 X10*6/uL (4.20-5.50); White Blood Count 6.4 X10*3/uL (4.8-10.8)
[2025-03-14 06:47] LABS: Alanine Aminotransferase 37 U/L (0-31); Albumin Level 3.7 g/dL (3.5-5.0); Alkaline Phosphatase 53 U/L (39-117); Anion Gap 11 (12-20); Aspartate Amino Transferase 41 U/L (5-31); Blood Urea Nitrogen 10 mg/dL (9-16); Calcium 8.9 mg/dL (8.4-10.2); Carbon Dioxide 29 mmol/L (22-29); Chloride 107 mmol/L (96-108); Creatinine Clr Calc Pharmacy 82.6; Estimated Glomerular Filt Rate > 60; Magnesium 2.4 mg/dL (1.6-2.6); Potassium 4.5 mmol/L (3.3-5.1); Sodium 142 mmol/L (135-145); Total Protein 5.7 g/dL (6.5-8.0)
[2025-03-14 07:09] LABS: INTERNATIONAL NORM RATIO 0.9 (0.9-1.1); Prothrombin Time 10.3 SEC (10.9-12.4)
--- NOTE | 2025-03-14 07:16 | P.PNIM_ITS ---
Subjective Subjective Date of Service: 03/14/25 Interval History: s/p ankle ORIF Review of Systems Review of Systems: Yes all other systems are reviewed and are negative Physical Exam 2 Exam: Exam: General: AOx3, pain optimally controlled with current regimen Resp: CTA bilaterally CVS: S1, S2, RRR GI: +BS, NT, no distention Skin: Warm, dry Neuro: Cranial nerves II-XII grossly intact bilaterally. Motor grossly intact bilaterally Extremities: Left ankle was in a cast, s/p ORIF Vital Signs: Vital Signs: Last Vital Signs Temp 96.9 F 03/14/25 03:47 Pulse 65 03/14/25 03:47 Resp 18 03/14/25 03:47 BP 109/53 L 03/14/25 03:47 Pulse Ox 96 03/14/25 03:47 O2 Del Method Room Air 03/14/25 03:47 BMI result Body Mass Index 27.3 Objective Data Active Medications Acetaminophen (Acetaminophen 325 Mg Tablet) 975 mg PO Q6H LILIA On Hold: 03/13/25 09:57 Last Admin: 03/13/25 05:50 Dose: 975 mg Documented By: CARLEEN Hydrocodone Bitart/Acetaminophen (Hydrocodone Bit/Acetam 5/325 Tablet) 1 tab PO Q4H PRN PRN Reason: Pain, Moderate(Pain Scale 4-6) Calcium Carbonate (Calcium Carbonate 750 Mg Tab.Chew) 750 mg PO Q4H PRN PRN Reason: Heartburn Diazepam (Diazepam 10 Mg/2 Ml Cartridge) 10 mg IVPUSH Q8H PRN PRN Reason: Anxiety Diphenhydramine HCl (Diphenhydramine Hcl 25 Mg Capsule) 25 mg PO Q4H PRN PRN Reason: Itching Docusate Sodium (Docusate Sodium 100 Mg Capsule) 100 mg PO BID LILIA Last Admin: 03/13/25 21:10 Dose: 100 mg Documented By: UBALDO Enoxaparin Sodium (Enoxaparin Sodium 40 Mg/0.4 Ml Syringe) 40 mg SUBCUT Q24H LILIA On Hold: 03/13/25 19:21 Resume: 03/14/25 20:00 Last Admin: 03/12/25 20:42 Dose: 40 mg Documented By: CARLEEN Hydromorphone HCl (Hydromorphone Hcl 1 Mg/Ml Syringe) 1 mg IVPUSH Q4H PRN; Protocol PRN Reason: Pain, Severe (Pain Scale 7-10) Last Admin: 03/14/25 05:18 Dose: 1 mg Documented By: UBALDO Cefazolin Sodium/Dextrose (Ancef) 2 gm in 50 mls @ 100 mls/hr IV PREOP ONE Stop: 03/14/25 10:29 Magnesium Hydroxide (Milk Of Magnesia 30 Ml Oral.Susp) 15 ml PO BID [facility] Last Admin: 03/13/25 21:16 Dose: 15 ml Documented By: UBALDO Melatonin (Melatonin 3 Mg Tablet) 6 mg PO BEDTIME [facility] Last Admin: 03/13/25 21:11 Dose: 6 mg Documented By: UBALDO Methocarbamol (Methocarbamol 750 Mg Tablet) 750 mg PO TID [facility] Last Admin: 03/13/25 21:11 Dose: 750 mg Documented By: UBALDO Naloxone HCl (Naloxone Hcl 0.4 Mg/Ml Vial) 0.1 mg IVPUSH Q2M PRN PRN Reason: Respiratory Rate < 10 Omeprazole (Omeprazole 20 Mg Capsule.Dr) 20 mg PO BID@0630,1630 [facility] Last Admin: 03/14/25 06:00 Dose: Not Given Documented By: UBALDO Non-Admin Reason: NPO Ondansetron HCl (Ondansetron Hcl 4 Mg/2 Ml Vial) 4 mg IVPUSH Q8H PRN PRN Reason: Nausea and Vomiting Last Admin: 03/13/25 20:14 Dose: 4 mg Documented By: UBALDO Oxycodone HCl (Oxycodone Hcl Er 10 Mg Tab.Er.12h) 10 mg PO BID [facility] Last Admin: 03/13/25 20:14 Dose: 10 mg Documented By: UBALDO Oxycodone HCl (Oxycodone Hcl Immed Release 5 Mg Tablet) 5 mg PO Q4H PRN PRN Reason: Pain, Moderate(Pain Scale 4-6) Polyethylene Glycol (Polyethylene Glycol 3350 17 Gm Powd.Pack) 17 gm PO DAILY PRN PRN Reason: Constipation Last Admin: 03/13/25 08:23 Dose: 17 gm Documented By: JONNY Senna (Sennosides 8.6 Mg Tablet) 17.2 mg PO BEDTIME [facility] Last Admin: 03/13/25 21:11 Dose: 17.2 mg Documented By: UBALDO Sodium Chloride (0.9 % Sodium Chloride Flush 3 Ml Syringe) 3 ml IVFLUSH QSHIFT [facility] Last Admin: 03/14/25 00:15 Dose: Not Given Documented By: UBALDO Non-Admin Reason: Previously Administered Trazodone HCl (Trazodone Hcl 25 Mg Halftab) 75 mg PO BEDTIME [facility] Last Admin: 03/13/25 21:10 Dose: 75 mg Documented By: UBALDO Labs 03/14/25 05:49 03/14/25 05:49 Labs: Laboratory Results - last 24 hr 03/14/25 05:49 MCV 92.0 MCH 30.5 MCHC 33.1 RDW 12.7 Plt Count 358 MPV 8.5 L Immature Gran % (Auto) 0.3 Neut % (Auto) 57.2 Lymph % (Auto) 31.5 [place] % (Auto) 7.0 Eos % (Auto) 3.4 Baso % (Auto) 0.6 Lymph # (Auto) 2.0 [place] # (Auto) 0.5 Eos # (Auto) 0.2 Baso # (Auto) 0.0 Abs Immat Gran (auto) 0.02 Absolute Neuts (auto) 3.7 Absolute Nucleated RBC 0.000 Nucleated RBC % (auto) 0.0 PT 10.3 L INR 0.9 Anion Gap 11 L Estim Creat Clear Calc 82.6 Estimated GFR > 60 Random Glucose 90 Calcium 8.9 Magnesium 2.4 Total Bilirubin 0.5 AST 41 H ALT 37 H Alkaline Phosphatase 53 Total Protein 5.7 L Albumin 3.7 Assessment and Plan (1) Ankle fracture, left: Status: Acute Plan 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 meds. Thankfully she underwent ORIF in the AM today Resume Lovenox Patient in significant pain-hence necessitating aggressive pain medication- scheduled Tylenol Robaxin lidocaine OxyContin oxycodone Ketoralac Dilaudid Patient reportedly had an unclear reaction likely secondary to contact dermatitis hence diphenhydramine is also being ordered DVT prophylaxis with Lovenox resumed immediately post surgery Aggressive bowel regimen to prevent constipation Rest, elevation and symptomatic regimen in the meantime For sleep hygiene-continue home trazodone DVT prophylaxis with Lovenox resumed immediately post surgery This note is constructed using voice recognition software. While every effort has been made to ensure accuracy, heel lift gouger errors may have been included. Quality Stroke Does the patient have a stroke diagnosis?: No VTE Prior VTE?: No VTE Risk Level:: Medical - moderate - high VTE Device Contraindication: Treatment Not Indicated VTE Drug Contraindication: N/A - Med Ordered
--- NOTE | 2025-03-14 07:40 | PC.NURSE ---
20g right upper arm. patent no leaking. asymptomatic.
--- NOTE | 2025-03-14 08:17 | MHC.SHP ---
Pre-Procedural Eval Section A - 24 Hr Update-Section A only Date of Service: 03/14/25 The patient is an INPATIENT: No Changes since office visit: No Cold of Flu in the past 2 weeks, No New Medical Problems, No Changes in Medication and No Patient answered all questions The patient has been examined within 24 hours of the surgical procedure. The History & Physical has been completed within 30 days and I have reviewed it.: Yes Section B - Complete if H&P > 30 days Chief Complaint: Left ankle fracture Allergies: Allergies Allergy/AdvReac Type Severity Reaction Status Date / Time hydromorphone (From Dilaudid) Allergy Intermediate Itching Verified 03/12/25 23:14 Plan I have reviewed the history and physical and performed a pertinent physical examination on my patient. No changes have occurred unless specified. Time Spent With Patient Time: Total time managing care of this patient today ____ minutes.
--- NOTE | 2025-03-14 10:29 | MHC.CM.PN ---
Patient not medically cleared for dc, OR today. CM will continue to follow.
--- NOTE | 2025-03-14 11:24 | PM.OP ---
Brief Operative Note Date of Service: 03/14/25 Pre-op diagnosis: Left ankle fracture/dislocation Post-op diagnosis: same Procedure: ORIF bimalleolar ankle fracture ORIF syndesmosis Implants: Sanborn Pangea posterior fibular plate, 4.0 cannaulated medial malleolar screws and Bloom medical syndesmosis cin Surgeon: Chilo Haynes MD Anesthesia: GLMA and regional Was an Embroidery Machine Operator used for this Procedure?: Yes Embroidery Machine Operator: Patricia Ricci Estimated blood loss (mL): 20 Tourniquet time (min): 105 IV fluids (mL): 100 Pathology: none sent Condition: stable Disposition: PACU
[2025-03-14] MEDS: 0.9 % Sodium Chloride Flush 3 ML SYRINGE IVFLUSH ×2 (15:01→20:41)
[2025-03-14] MEDS: HYDROcodone Bit/Acetam 5/325 TABLET 1 TAB PO (16:00)
[2025-03-14] MEDS: Milk of Magnesia 30 ML ORAL.SUSP 15 ML PO (20:22)
[2025-03-14] MEDS: oxyCODONE HCl ER 10 MG TAB.ER.12H PO (20:27)
[2025-03-14] MEDS: traZODone HCL 25 MG HALFTAB 75 MG PO (20:27)
[2025-03-15 04:00] VITALS: BP 110/57; PULSE 80; RESP 18; TEMP 36.6; O2SAT 94
[2025-03-15 06:13] LABS: MANUAL DIFF FLAG NO
[2025-03-15 06:34] LABS: Hematocrit 35.9 % (37.0-47.0); Hemoglobin 12.2 g/dl (12.0-16.0); Imm Gran Abs Auto 0.14 X10*3/uL (0.00-0.03); Imm Gran Pct Auto 1.2 % (0.0-0.4); Lymphocytes Absolute Auto 2.0 X10*3/uL (1.2-4.9); Mean Corpuscular HGB Conc 34.0 g/dl (31.0-35.0); Mean Corpuscular Hemoglobin 30.7 pg (27.0-33.0); Mean Corpuscular Volume 90.4 fL (80.0-98.0); NRBC Abs Auto 0.000 X10*3/uL (0.0-0.012); NRBC Pct Auto 0.0 /100WBC (0.0-0.2); Platelet Count 356 X10*3/uL (160-400); Red Blood Count 3.97 X10*6/uL (4.20-5.50); White Blood Count 11.4 X10*3/uL (4.8-10.8)
--- NOTE | 2025-03-15 07:11 | P.PNIM_ITS ---
Subjective Subjective Date of Service: 03/15/25 Physical Exam 2 Vital Signs: Vital Signs: Last Vital Signs Temp 97.8 F 03/15/25 04:00 Pulse 80 03/15/25 04:00 Resp 18 03/15/25 04:00 BP 110/57 L 03/15/25 04:00 Pulse Ox 94 03/15/25 04:00 O2 Del Method Room Air 03/15/25 04:00 BMI result Body Mass Index 27.3 Objective Data Active Medications Acetaminophen (Acetaminophen 325 Mg Tablet) 975 mg PO Q6H LILIA On Hold: 03/13/25 09:57 Last Admin: 03/13/25 05:50 Dose: 975 mg Documented By: CARLEEN Hydrocodone Bitart/Acetaminophen (Hydrocodone Bit/Acetam 5/325 Tablet) 1 tab PO Q4H PRN PRN Reason: Pain, Moderate(Pain Scale 4-6) Last Admin: 03/14/25 16:00 Dose: 1 tab Documented By: HAILEY Calcium Carbonate (Calcium Carbonate 750 Mg Tab.Chew) 750 mg PO Q4H PRN PRN Reason: Heartburn Diazepam (Diazepam 10 Mg/2 Ml Cartridge) 10 mg IVPUSH Q8H PRN PRN Reason: Anxiety Diphenhydramine HCl (Diphenhydramine Hcl 25 Mg Capsule) 25 mg PO Q4H PRN PRN Reason: Itching Docusate Sodium (Docusate Sodium 100 Mg Capsule) 100 mg PO BID [facility] Last Admin: 03/14/25 20:27 Dose: 100 mg Documented By: CATALINO Enoxaparin Sodium (Enoxaparin Sodium 40 Mg/0.4 Ml Syringe) 40 mg SUBCUT Q24H [facility] Last Admin: 03/14/25 16:00 Dose: 40 mg Documented By: HAILEY Hydromorphone HCl (Hydromorphone Hcl 1 Mg/Ml Syringe) 1 mg IVPUSH Q4H PRN; Protocol PRN Reason: Pain, Severe (Pain Scale 7-10) Last Admin: 03/15/25 06:31 Dose: 1 mg Documented By: CATALINO Cefazolin Sodium/Dextrose (Ancef) 2 gm in 50 mls @ 100 mls/hr IV POSTOP LILIA Lorazepam (Lorazepam 0.5 Mg Tablet) 0.5 mg PO DAILY PRN PRN Reason: Anxiety Magnesium Hydroxide (Milk Of Magnesia 30 Ml Oral.Susp) 15 ml PO BID [facility] Last Admin: 03/14/25 20:22 Dose: 15 ml Documented By: CATALINO Magnesium Oxide (Magnesium Oxide 400 Mg Tablet) 400 mg PO BEDTIME [facility] Last Admin: 03/14/25 20:28 Dose: 400 mg Documented By: CATALINO Melatonin (Melatonin 3 Mg Tablet) 6 mg PO BEDTIME [facility] Last Admin: 03/14/25 20:38 Dose: 6 mg Documented By: CATALINO Methocarbamol (Methocarbamol 750 Mg Tablet) 750 mg PO TID [facility] Last Admin: 03/14/25 20:27 Dose: 750 mg Documented By: CATALINO Multivitamins/Vitamin C (Multivitamin Tablet) 1 tab PO BEDTIME [facility] Last Admin: 03/14/25 20:28 Dose: 1 tab Documented By: CATALINO Naloxone HCl (Naloxone Hcl 0.4 Mg/Ml Vial) 0.1 mg IVPUSH Q2M PRN PRN Reason: Respiratory Rate < 10 Naloxone HCl (Naloxone Hcl 0.4 Mg/Ml Vial) 0.04 mg IVPUSH Q5M PRN PRN Reason: Excessive sedation or RR < 8 Omeprazole (Omeprazole 20 Mg Capsule.Dr) 20 mg PO BID@0630,1630 [facility] Last Admin: 03/15/25 06:13 Dose: 20 mg Documented By: CATALINO Ondansetron HCl (Ondansetron Hcl 4 Mg/2 Ml Vial) 4 mg IVPUSH Q8H PRN PRN Reason: Nausea and Vomiting Last Admin: 03/14/25 20:42 Dose: 4 mg Documented By: CATALINO Oxycodone HCl (Oxycodone Hcl Er 10 Mg Tab.Er.12h) 10 mg PO BID [facility] Last Admin: 03/14/25 20:27 Dose: 10 mg Documented By: CATALINO Oxycodone HCl (Oxycodone Hcl Immed Release 5 Mg Tablet) 5 mg PO Q4H PRN PRN Reason: Pain, Moderate(Pain Scale 4-6) Polyethylene Glycol (Polyethylene Glycol 3350 17 Gm Powd.Pack) 17 gm PO DAILY PRN PRN Reason: Constipation Last Admin: 03/14/25 14:56 Dose: 17 gm Documented By: HAILEY Senna (Sennosides 8.6 Mg Tablet) 17.2 mg PO BEDTIME [facility] Last Admin: 03/14/25 20:27 Dose: 17.2 mg Documented By: CATALINO Sodium Chloride (0.9 % Sodium Chloride Flush 3 Ml Syringe) 3 ml IVFLUSH QSHIFT [facility] [place] Last Admin: 03/14/25 20:41 Dose: 3 ml Documented By: CATALINO Trazodone HCl (Trazodone Hcl 25 Mg Halftab) 75 mg PO BEDTIME [facility] Last Admin: 03/14/25 20:27 Dose: 75 mg Documented By: CATALINO Labs 03/15/25 05:40 03/14/25 05:49 Labs: Laboratory Results - last 24 hr 03/15/25 05:40 MCV 90.4 MCH 30.7 MCHC 34.0 RDW 12.8 Plt Count 356 MPV 8.8 L Immature Gran % (Auto) 1.2 H Neut % (Auto) 74.5 H Lymph % (Auto) 17.3 L [place] % (Auto) 6.5 Eos % (Auto) 0.2 Baso % (Auto) 0.3 Lymph # (Auto) 2.0 [place] # (Auto) 0.7 Eos # (Auto) 0.0 Baso # (Auto) 0.0 Abs Immat Gran (auto) 0.14 H Absolute Neuts (auto) 8.5 H Absolute Nucleated RBC 0.000 Nucleated RBC % (auto) 0.0 Quality Stroke Does the patient have a stroke diagnosis?: No VTE Prior VTE?: No VTE Risk Level:: Medical - moderate - high VTE Device Contraindication: Treatment Not Indicated VTE Drug Contraindication: N/A - Med Ordered
[2025-03-15 08:02] VITALS: BP 109/62; PULSE 68; RESP 15; TEMP 36.4; O2SAT 96
[2025-03-15] MEDS: oxyCODONE HCl ER 10 MG TAB.ER.12H PO (08:45)
[2025-03-15] MEDS: Milk of Magnesia 30 ML ORAL.SUSP 15 ML PO (08:45)
[2025-03-15] MEDS: 0.9 % Sodium Chloride Flush 3 ML SYRINGE IVFLUSH (08:50)
--- NOTE | 2025-03-15 09:11 | HO.POSTANES ---
Post Anesthesia Evaluation Post Anesthesia Evaluation Date of Service: 03/15/25 (Ankle ORIF 03/14/25) Vital Signs: Vital Signs Temp Pulse Resp BP Pulse Ox O2 Del Method 03/15/25 08:02 97.5 F 68 15 109/62 96 Room Air 03/15/25 04:00 97.8 F 80 18 110/57 L 94 Room Air 03/14/25 23:27 97.2 F 86 16 112/56 L 97 Room Air Anesthesia: Nerve Block and General LMA Mental Status: Awake Pain Control: Satisfactory Nausea/Vomiting: None Hydration: Adequate Anesthesia-Related Issues: No Anes. Related Issues
--- NOTE | 2025-03-15 09:53 | MHC.CM.PN ---
DP: PT HAS BEEN MEDICALLY CLEARED FOR DC HOME WITH OP SERVICES AND FAMILY SUPPORT. PT'S FAMILY WILL TRANSPORT HOME.
[2025-03-15 10:42] VITALS: BP 107/67; PULSE 81; RESP 18; TEMP 36.2; O2SAT 95
--- NOTE | 2025-03-15 13:29 | PM.DS ---
DS: Providers Provider Date of Service: 03/15/25 Date of admission: 03/14/25 15:44 Date of discharge: 03/15/25 Primary care physician: GRISEL Laird Consults: 03/12/25 17:25 Consult to Orthopedics Routine Consulting Provider: [facility] [place] [facility] Reason for consultation: L ankle #, s/p fixation 03/12/25 19:10 Consult to Orthopedics Routine Consulting Provider: [facility] [place] [facility] Reason for consultation: trimaleolar fracture DS: Diagnosis Discharge Diagnosis (1) Ankle fracture, left: Status: Acute DS: Summary Hospital Course Hospital Course: 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 meds. Thankfully she underwent ORIF on 03/14/2025 without any event For DVT prophylaxis she is being sent on aspirin 81 b.i.d. for 45 days Patient was in significant pain-hence necessitating aggressive pain medication-scheduled Tylenol Robaxin lidocaine OxyContin oxycodone Ketoralac Dilaudid while inpatient For outpatient treatment-please refer to the p.o. meds that she is being sent home on, post surgery pain better controlled as is expected Patient reportedly had an unclear reaction likely secondary to contact dermatitis from sheets, hence diphenhydramine was also ordered while inpatient Aggressive bowel regimen to prevent constipation Rest, elevation and symptomatic regimen in the meantime For sleep hygiene-continue home trazodone DVT prophylaxis with Lovenox resumed immediately post surgery This note is constructed using voice recognition software. While every effort has been made to ensure accuracy, wrapper layer and examiner soft work errors may have been included. Time spent discussing smoking cessation with patient: more than 10 minutes Status at Discharge Functional status at discharge: uses cane/walker Overall status at discharge: patient is progressing back to baseline Time Attestation Discharge Coordination Time (in mins): 35 Quality: Safe Use of Opioids Does Pt have an Active Cancer Diagnosis on the Problem List?: No Quality: Stroke Does the patient have a stroke diagnosis?: No Physical Exam Vital Signs: Vital Signs: Last Vital Signs Temp 97.2 F 03/15/25 10:42 Pulse 81 03/15/25 10:42 Resp 18 03/15/25 10:42 BP 107/67 03/15/25 10:42 Pulse Ox 95 03/15/25 10:42 O2 Del Method Room Air 03/15/25 10:42 BMI result Body Mass Index 27.3 DS: Data Data Completed and Pending Labs on day of discharge: Laboratory Results - last 24 hr 03/15/25 05:40 WBC 11.4 H RBC 3.97 L Hgb 12.2 Hct 35.9 L MCV 90.4 MCH 30.7 MCHC 34.0 RDW 12.8 Plt Count 356 MPV 8.8 L Immature Gran % (Auto) 1.2 H Neut % (Auto) 74.5 H Lymph % (Auto) 17.3 L [place] % (Auto) 6.5 Eos % (Auto) 0.2 Baso % (Auto) 0.3 Lymph # (Auto) 2.0 [place] # (Auto) 0.7 Eos # (Auto) 0.0 Baso # (Auto) 0.0 Abs Immat Gran (auto) 0.14 H Absolute Neuts (auto) 8.5 H Absolute Nucleated RBC 0.000 Nucleated RBC % (auto) 0.0 Discharge Plan Discharge Anticipated Discharge Date/Time: 03/15/25 09:23 Patient Disposition: Home, Self-Care Discharge Diagnosis: Traumatic L ankle #, s/p ORIF Referrals: Patricia Ricci PA-C [Physician Dredge Master, Orthopedics] - 1 Week Referral Note: 03/27/25 09:00 [facility] [place] [facility] Patricia Ricci PA-C Discharge Medications: New acetaminophen 325 mg Tablet 650 mg PO Q6H 30 Days Qty: 240 0RF docusate sodium 100 mg Capsule 100 mg PO BID 7 Days Qty: 14 0RF ondansetron HCl 4 mg tablet 4 mg PO Q6H PRN (Reason: nausea and vomiting) 30 Days Qty: 90 0RF hydrocodone-acetaminophen 5-325 mg Tablet 1 tab PO Q4H PRN (Reason: Pain, Moderate(Pain Scale 4-6)) 14 Days Qty: 20 0RF Rx Instructions: Partial Fill upon patient request. methocarbamol 750 mg Tablet 750 mg PO TID 30 Days Qty: 90 3RF naloxone 0.4 mg/mL Solution 0.04 mg IVPUSH Q5M PRN (Reason: Excessive sedation or RR < 8) 10 Days Qty: 10 2RF oxycodone [OxyContin] 10 mg Tablet,Oral Only,Ext.Rel.12 Hr 10 mg PO BID 10 Days Qty: 20 0RF Rx Instructions: Partial Fill upon patient request. magnesium hydroxide [Milk of Magnesia] 400 mg/5 mL Suspension 15 ml PO BID Qty: 3780 3RF polyethylene glycol 3350 17 gram Powder In Packet 17 g PO BID Qty: 14 3RF omeprazole 20 mg Capsule,Delayed Release(Dr/Ec) 20 mg PO BID@0630,1630 30 Days Qty: 60 0RF sennosides [Senna Lax] 8.6 mg Tablet 17.2 mg PO BEDTIME 14 Days Qty: 28 3RF Fleet Enema 19-7 gram/118 mL Enema 133 ml UT ONCE PRN (Reason: Constipation) Qty: 266 0RF oxycodone 5 mg capsule 5 mg PO Q8H PRN (Reason: pain) Qty: 14 0RF Rx Instructions: Partial Fill upon patient request. aspirin 81 mg capsule 81 mg PO DAILY 30 Days Qty: 30 3RF Continued (DME) Kneeling Scooter See Rx Instructions .ROUTE .MEDSUPPLY Qty: 1 0RF Rx Instructions: As directed trazodone 50 mg tablet 75 mg PO BEDTIME ibuprofen 800 mg tablet 800 mg PO Q8H PRN (Reason: pain) lorazepam 0.5 mg tablet 0.5 mg PO DAILY PRN (Reason: Anxiety) ascorbic acid (vitamin C) [Vitamin C] 500 mg Tablet 500 mg PO BEDTIME docusate sodium 100 mg Tablet 100 mg PO BEDTIME zinc 50 mg Capsule 50 mg PO DAILY One Daily For Women 18-0.4 mg Tablet 1 tab PO BEDTIME magnesium 250 mg Tablet 500 mg PO BEDTIME Discharge Orders: Discharge Order (Routine); Ordered 03/15/25 Ordered By: Magalis Espinal Diet: Advance to usual diet Activity on Discharge: Use Splints or Immobilizers Stand Alone Forms: Patient Portal Discharge page, Work/School Release Print Language: Setswana Care Plan Goals: mobility , PT/OT Pain control Regaining strength Health Concerns: See above Plan of Treatment: 1. Activity and Weightbearing Do NOT bear weight on the operative leg until cleared. Use crutches or a walker Keep your leg elevated above heart level as much as possible for the first 5-7 days to reduce swelling. Avoid prolonged standing or sitting with the leg hanging down. Move your toes and non-injured joints often to maintain circulation. 2. Immobilization and Dressing Keep the splint, cast, or boot clean and dry at all times. Do not remove the splint or dressings. If the splint feels excessively tight, numbness develops, or your toes become pale/blue and cold, loosen the catracho wrap if possible and contact your surgeon immediately. Call orthopedics if the splint becomes wet. 3. Wound Care Keep the dressing intact and dry until your follow-up visit or until instructed to change it. Do not soak the incision (no baths, pools, or hot tubs) until the incision is fully healed. Do not shower. 4. Pain Management Take prescribed pain medications as directed. You may use Tylenol or NSAIDs if approved by your surgeon for mild pain. Ice may be applied over the splint (20 minutes on, 20 minutes off) several times a day to help with pain and swelling ? make sure the splint stays dry. 5. Diet and Constipation Prevention Resume your regular diet as tolerated. Pain medications can cause constipation ? increase fluids, fiber, and activity as tolerated. You may use [id number] stool softeners (Colace, Senna, Miralax) if needed. 6. Signs to Contact Your Surgeon Call your surgeon or go to the emergency room if you experience: Fever > 101?F (38.3?C) Excessive swelling, redness, or drainage from incision site(s) Numbness, tingling, or inability to move your toes Calf pain, swelling, or shortness of breath (possible blood clot) 7. Follow-Up Your first postoperative appointment is typically 10?14 days after surgery for wound check and possible suture/staple removal and cast placement. Assessment: see above Patient Instructions: Ankle Fracture (DC) Discharge Date/Time: 03/15/25 11:38
--- NOTE | 2025-03-16 09:11 | W.PM.OPN ---
Operative Note Operative Note Date of Service: 03/14/25 Narrative: Date of Service: 03/14/25 Pre-op diagnosis: Left ankle fracture/dislocation Post-op diagnosis: same Procedure: ORIF bimalleolar ankle fracture ORIF syndesmosis Implants: Yuin Pangea posterior fibular plate, 4.0 cannaulated medial malleolar screws and [employer] [facility] syndesmosis [facility] Surgeon: Chilo Haynes MD Anesthesia: GLMA and regional Was an Alternative Financing Specialist used for this Procedure?: Yes Alternative Financing Specialist: Patricia Ricci Estimated blood loss (mL): 20 Tourniquet time (min): 105 IV fluids (mL): 100 Pathology: none sent Condition: stable Disposition: PACU Procedure in detail: Patient was brought to the operating room and placed supine on the operative table. All bony prominences were well padded and a time-out was called to identify proper site proper procedure proper surgeon. IV antibiotics per weight were administered. I began by exsanguinating limb is slightly tourniquet to 300 mm Hg. I then made a standard posterolateral incision over the fibula. Full-thickness flaps were taken down to the fibular shaft and distal fibula. The fracture was identified and cleaned with a combination of curette, rongeur and irrigation. She had a very small fibula and the typical lateral plate was too large. In addition she had a posterior fibular surface that was flat and accommodated the smaller posterior fibular plate perfectly. Therefore I internally rotated her leg and was able to apply a 10 hole posterior fibular plate. Standard AO technique was used to place bicortical nonlocking screws distally and proximally. 12 cortices distal and proximal to the fracture were obtained. The fracture reduction was maintained with a lobster claw tenaculum in his could not accommodate a lag screw given its transverse nature. Biplanar fluoroscopy was used to confirm hardware position and fracture reduction. Once I was satisfied that both of these were acceptable I irrigated copiously and turned my attention to the medial side. The transverse medial malleolar fracture was identified after skin incision. Full-thickness skin flaps were developed and, With a sharp tenaculum, the fracture was reduced. 2 threaded K-wires were then placed from distal to proximal and perpendicular to the fracture. Biplanar fluoroscopy was used to confirm positioning and then they were overdrilled and 2 34 mm 4.0 partially-threaded cannulated cancellous screws were placed across the fracture. I was satisfied with the position and the fracture reduction based on biplanar fluoroscopy. This syndesmosis was tested using external rotation test and was unstable. I used a large C-clamp to reduce the syndesmosis. A syndesmotic cinch was then inserted from lateral to medial and posterior to anterior at a proximally 20 degree angle. This was drilled parallel to the ankle joint. The lateral cortex was over-drilled through a washer and the button was attached medially and then cinched to the medial cortex. The clamp was removed and an external rotation test was again performed and the syndesmosis was found to be stable. All instrumentation was then removed. Copious irrigation was performed. Medially nylon sutures were used in a modified interrupted fashion. Absorbable sutures were used used for closure laterally with skin glue and Steri-Strips. The patient was placed into sterile dressings and a well-padded posterior splint. Tourniquet was let down and the patient was extubated brought to recovery room in stable condition there were no known complications.
== END 2025-03-15 11:38 | disposition home or self-care (01) | DRG 313 ==
LOC: HO.ED 16:29 → HO.EDOVER 17:34 → HO.S3 17:52
PROVIDERS: Nurse Practitioner Acute Care; Nurse Practitioner Family; Orthopaedic Surgery; Admitting Provider Student in an Organized Health Care Education/Training Program; Emergency Provider Emergency Medicine; PCP Nurse Practitioner Family; Visit Provider Student in an Organized Health Care Education/Training Program
PROC: 0QSH04Z Reposition Left Tibia with Internal Fixation Device, Open Approach (ICD-10-PCS; principal; 2025-03-14 08:30)
DX: S82.842A Displaced bimalleolar fracture of left lower leg, initial encounter for closed fracture (principal); G89.18 Other acute postprocedural pain; W19.XXXA Unspecified fall, initial encounter; Z79.82 Long term (current) use of aspirin; Z79.899 Other long term (current) drug therapy
CPT/HCPCS: 36415; 73600; 80048; 80053; 81025; 83735; 85025; 85027; 85610; 93005; 97116; 97161; 97165; 97530; 99285; C1713; J0131; J0165; J0665; J0690; J1100; J1171; J1650; J1885; J2003; J2004; J2250; J2270; J2405; J2704; J3010

== ENCOUNTER → 2025-03-12 12:58 | Outpatient (BNV) | payer OTHER, SELFPAY | PROVIDERS: Emergency Provider Emergency Medicine; PCP Nurse Practitioner Family; Visit Provider Radiology Diagnostic Radiology | DX: S82.52XA Displaced fracture of medial malleolus of left tibia, initial encounter for closed fracture (principal); S82.832A Other fracture of upper and lower end of left fibula, initial encounter for closed fracture | CPT/HCPCS: 73600 ==

== ENCOUNTER 2025-03-12 17:17 | Outpatient (BNV) | payer OTHER, SELFPAY | END 2025-03-12 18:07 | PROVIDERS: Admitting Provider Student in an Organized Health Care Education/Training Program; Emergency Provider Emergency Medicine; PCP Nurse Practitioner Family; Visit Provider Internal Medicine Cardiovascular Disease | DX: Z13.6 Encounter for screening for cardiovascular disorders (principal) | CPT/HCPCS: 93010 ==

== ENCOUNTER → 2025-03-12 17:17 | Outpatient (BNV) | payer OTHER, SELFPAY | PROVIDERS: Admitting Provider Student in an Organized Health Care Education/Training Program; Emergency Provider Emergency Medicine; PCP Nurse Practitioner Family; Visit Provider Nurse Practitioner Acute Care | DX: R52 Pain, unspecified (principal) | CPT/HCPCS: 99223 ==

== ENCOUNTER → 2025-03-12 17:17 | Outpatient (BNV) | payer OTHER, SELFPAY | PROVIDERS: Admitting Provider Student in an Organized Health Care Education/Training Program; Emergency Provider Emergency Medicine; PCP Nurse Practitioner Family; Visit Provider Orthopaedic Surgery | DX: S82.842A Displaced bimalleolar fracture of left lower leg, initial encounter for closed fracture (principal); S82.892A Other fracture of left lower leg, initial encounter for closed fracture | CPT/HCPCS: 27814; 99223 ==

== ENCOUNTER 2025-03-27 08:40 | Outpatient (REF) | payer OTHER, SELFPAY ==
--- NOTE | ~2025-03-27 | XR_ITS ---
EXAMINATION: XR ANKLE, LEFT CLINICAL INFORMATION: M25.579 - Pain in unspecified ankle and joints of unspecified foot COMPARISON: Previous x-ray March 12 and intraoperative fluoroscopic images March 14, 2025 TECHNIQUE: AP, lateral, and mortise views of the left ankle. FINDINGS: Surgical hardware with plate and screws in the distal fibula transfixing the distal fibular shaft fracture with anatomic alignment. 2 screws transfixing the medial malleolar fracture with anatomic alignment. Button and fixation of the distal tibia fibular joint. Orthopedic hardware appears intact and unchanged. Alignment is anatomic. The ankle mortise is normal. There is generalized soft tissue swelling. XR/XR ankle LT min 3V IMPRESSION: ORIF of left distal fibular shaft and medial malleolar fractures. Electronically signed by: Dana Crowley MD 03/27/2025 09:14 AM EDT
--- OUTSIDE RECORDS SUMMARY | 2025-03-28 09:15 | XMS_ITS | Data Portability ---
Author Organization ELENA Eduin Trujillo [facility], [facility] [place] Address [address] [place] [address] Assessment Encounter Date Assessment Date Assessment LastModified [...] in 3 months. All questions answered today. [email or web address] Not available 08/24/2023 14:21:45 11/16/2023 11/16/2023 48-year-old female here for post op visit status post left hip arthroscopy, labral repair, and debridement of calcific tendinitis performed on May 12, 2023 a Plan: Patient is going to continue strength training and will start working with a personal chef. Suggested that she drop down to 1 [...] Follow-up will be arranged as symptoms dictate. [email or web address] Not available 11/16/2023 08:54:33 Plan of Treatment [...] Orders Celebrex 200 mg capsule 2023 024 [facility]arm[facility] #[id number], [address] [place], [address], 13:50:14 Patient TargetsNo targets recorded. Patient InstructionsNo [...] Address Organization Details Recorded Time No complaints [id number] Active Status : 'A'; Not Available [facility] 09:19:01 Problem Notes None recorded. Procedures Surgical History Date Name Laterality Status Provider Name and Address Organization Details Recorded Time 024 59120 Therapeutic Exercise (1:1) cancelled Paige Alcantara, PILLOW FILLER [address], [place], [address], [facility] 08/19/2023 16:16:30 024 44437 Therapeutic Exercise (1:1) completed Aileen Kahn, PT [address], [place], [address], [facility] 08/19/2023 10:49:16 024 08922 Therapeutic Exercise (1:1) completed Aileen Kahn, PT [address], [place], [address], [facility] 08/16/2023 11:34:37 [facility] 08/24/2023 13:23:03 cholecystectomy completed [facility] 08/24/2023 13:23:27 ligation of fallopian tube completed [facility] 08/24/2023 13:23:37 Imaging Results None recorded. Procedure [...] Available Not Available No t Available Transderm-S copy director 1 mg over 3 days transdermal patch [...] Updated DateTime 08/24/2023 152.4 cm 25.4 kg/m2 49982.01 g PATRICIA PEÑA [facility] 08/24/2023 13:21:56 Date Recorded Body height Body mass index (BMI) Body weight Provider Name and Address Organization Details Last Updated DateTime 11/16/2023 152.4 cm 25.4 kg/m2 22210.01 eunice Zuleika parker [facility] 11/16/2023 08:14:27 Social History Question Answer Notes LastModified by Xfire Details LastModified Time Tobacco Smoking Status Never Smoker PATRICIA PEÑA [facility] 08/24/2023 13:22:51 Have You Ever Been Counseled For Unhealthy Alcohol Use? No Information not available 08/24/2023 Sex: Unknown Functional Status Question Answer Note LastModified by Xfire Details LastModified Time How many times per [...] Kidney/Bladder Problems N Anemia N Heart Attack ([place]) N Diabetes N Bleeding Disorder N Seizures/Epilepsy [...] ICD10 Code Diagnosis IMO Codes Diagnosis Note [id number] Aileen Kahn, PT [facility] [address] [place] [address] 08/16/2023 10:22:29 08/16/2023 12:13:58 Sprain of left hip [id number] [id number] S73.192D [id number] Aileen Kahn, PT [facility] [address] [place] [address] 08/19/2023 10:37:57 08/19/2023 11:31:27 Sprain of left hip 1137439612 8733635 S73.192D [id number] Stevie Corrales MD [facility] [address] [place] [address] 08/24/2023 13:11:29 09/17/2023 10:37:47 Pain of left hip joint 9683925777 64812 M25.316 [id number] Stevie Corrales MD [facility] [address] [place] [address] 11/16/2023 08:03:41 12/15/2023 09:55:04 Pain of left hip joint 4847974474 21398 M25.552 Sprain of left hip 00463 90259 9015609 S73.102D Health Concerns Section Related Observation LastModified by Organization Detai ls LastModified Time None Recorded Concern Status LastModified by Organization Details LastModified Time None Recorded Advance Directives Directive None Recorded Payers Insurance Date Sequence Insurance Name Policy Number Policy Brady Covered Member ID Brady Member ID Guarantor Name 11/16/2023 1 [facility] [id number] Lynda Baca [id number] Lynda Baca 03/12/2025 1 [facility] (MEDICAID HMO) [id number] Lynda Wolfuill [id number] Lnyda Wolfuill 03/12/2025 1 BLUE BENEFIT ADMINISTRATORS OF [facility]) [id number] Lynda Baca [id number] Lynda Wolfuill Notes Date Note Type Note Provider Name and Address Organization Details Recorded Time 08/16/2023 text/html still getting some pain L anterior hip. definitely feeling stronger overall. Aileen Kahn, PT [address], [place], [address], [facility] 08/16/2023 11:34:50 08/19/2023 text/html hip is sore all the time now where as before surgery it was only painful with activity. prior to surgery was taking anti inflamm meds daily, but now not taking at all. Aileen Kahn, PT [address], [place], [address], [facility] 08/19/2023 12:08:29 08/24/2023 text/html [...] one month ago. Stevie Corrales MD [address], [place], [address], [facility] 08/24/2023 14:21:59 11/16/2023 text/html [...] the anterior hip. Stevie Corrales MD [address], [place], [address], [facility] [place] [facility] 11/16/2023 08:55:01 OBGyn Episode No OBEpisode recorded.
--- OUTSIDE RECORDS SUMMARY | 2025-03-28 09:15 | XMS_ITS | Clinical Summary ---
Author Organization [facility] Address [address] [address] Phone Care Team Providers Care [employer] Name Role Phone Shayna Becerra NP Primary [...] Department Care Team Description 03/11/2025 Procedure Pass [facility] Emergency Imaging, Main [address], Floor 1 [place] [address] 03/10/2025 9:45 PM EDT - 03/11/2025 10:20 AM EDT Emergency [facility] Emergency Dept [address] [place] [phone] Emil Bloom MD Tasi, Fransisco Leija MD, [...] clinician's provided indication for this examination in [facility]: * Ankle dislocation TECHNIQUE: Multidetector-row CT [...] clinician's provided indication for this examination in [facility]: *Ankle dislocation TECHNIQUE: Multidetector-row CT of [...] vital sign checks, continuous pulse oximetry and traffic monitor specialist Intra-procedure events: none Post-procedure details: Attendance: constant [...] clinician's provided indication for this examination in [facility]: Fracture Follow Up COMPARISON: XR ANKLE 3 OR MORE VIEWS (LEFT) Procedure Note Clifford Kma MD - 03/11/2025 XR ANKLE 3 OR MORE VIEWS (LEFT) Referring clinician's provided indication for this examination in [facility]:Fracture Follow Up COMPARISON: XR ANKLE 3 [...] clinician's provided indication for this examination in [facility]: Pain; fall, ankle tenderness. COMPARISON: FINDINGS: [...] R esult from Last 3 Months Insurance [employer] B[employer]MIN[employer]ORS [facility] [employer]EFITS ADMINISTRATORS Care Teams [employer] Relationship Specialty Start Date End Date Shayna Becerra NP [address] [facility] [address] [place] [address] PCP - General Nurse Practitioner 03/10/25 Additional Source Comments The information contained in this document represents components of the legal health record. It is not the complete legal health record.[facility]
--- OUTSIDE RECORDS SUMMARY | 2025-03-28 09:15 | XMS_ITS | Encounter Summary ---
Author Organization [facility] Address [address] [facility] [address] [place] [phone] Phone Care Team Providers Care Oil [employer] Name Role Phone Shayna Becerra NP Primary Care Provider + Encounter Details Date Type Department Care Team (Late st Contact Info) Description 03/11/2025 Procedure Pass [facility] [place], [address] [place] [address] Social History Tobacco Use Types Packs/Day Years [...] 7:37 AM EDT Mayuri Benedict RN * [place] Suicide Severity Rating Scale (Screener/Recent Self-Report) Question [...] on filedocumented in this encounter Care Teams [employer] Relationship Specialty Start Date End Date Shayna Becerra NP [address] [facility] [address] [address] PCP - General Nurse Practitioner 03/10/25 documented as of this encounter Additional Source Comments The information contained in this document represents components of the legal health record. It is not the complete legal health record.[facility]
== END 2025-03-27 08:41 | disposition home or self-care (01) ==
LOC: HO.HOSX 08:40
PROVIDERS: Visit Provider Physician Assistant
DX: S82.892D Other fracture of left lower leg, subsequent encounter for closed fracture with routine healing (principal); M25.572 Pain in left ankle and joints of left foot
CPT/HCPCS: 29405; 73610

== ENCOUNTER 2025-03-27 08:53 | Outpatient (AMB) | payer OTHER, SELFPAY ==
--- NOTE | 2025-03-27 09:17 | A.OFFVIS_ITS ---
Intake Visit Reasons: PO - left ankle ORIF 03/14/25 NE Intake Note: Lynda is a 49 year old female who presents today for a post operative appointment for her states post left ankle bimalleolar and syndesmosis ORIF done on 03/14/[address] Haynes. Patient reports she is having a lot of pain and tenderness on the medial aspect of the ankle. Allergies hydromorphone (From Dilaudid) Allergy (Intermediate, Verified 03/27/25 09:47) Itching HPI HPI PO - left ankle ORIF 03/14/25 NE: Details: Ms. Baca is a 49-year-old female who presents to the office today status post left ankle ORIF performed on 03/14/[address] Haynes. Patient has been compliant with nonweightbearing. She presented to the office today in the splint to in which was clean dry and intact. Splint was removed for x-ray images to be obtained. Patient reports pain is managed. No additional complaints. PFSH Medical History (Updated 03/23/25 @ 00:01 by Georges Spain) Labral tear of hip joint Surgical History (Updated 03/27/25 @ 11:41 by Patricia Ricci PA-C) Hx of cholecystectomy Social History Household Members: Children Housing: House Do you presently have visiting nurse or other home services: No Patient Tobacco Use Status: Never used Tobacco service: No Review of Systems Const All systems reviewed & are unremarkable except as noted in HPI and below Physical Exam Const General: cooperative, healthy appearing and no acute distress Resp Effort & Inspection: normal respiratory effort and able to speak in complete sentences Extrem Other: Left ankle incision sites are clean dry and intact. Medial incision site sutures are intact. No surrounding erythema or drainage. No signs of infection. Able to slightly dorsiflex and plantar flex. Sensation is reportedly intact. Pedal pulse intact. Psych Appearance: grossly normal Mental Status: mental status grossly normal Attitude: cooperative Office Procedures Casting/Splints 73807-Qheom Leg Cast Application Procedure code (CPT) selection complete Assessment & Plan Assessment & Plan (1) Ankle fracture, left: Code(s): S82.892A - Other fracture of left lower leg, initial encounter for closed fracture Category: Medical (2) Status post ORIF of fracture of ankle: Code(s): Z98.890 - Other specified postprocedural states; Z87.81 - Personal history of (healed) traumatic fracture Category: Surgical Plan Ms. Baca is a 49-year-old female who presents to the office today status post left ankle ORIF performed on 03/14/[address] Haynes. Patient has been compliant with nonweightbearing. She presented to the office today in the splint to in which was clean dry and intact. Splint was removed for x-ray images to be obtained. Patient reports pain is managed. No additional complaints. While in the office today medial incision site sutures are removed and Steri- Strips were applied. She is placed into a short-leg cast. She will continue nonweightbearing. X-rays obtained in the office today were reviewed by me and reveal intact orthopedic hardware with satisfactory alignment. She will follow up in 4 weeks with cast off and repeat x-rays, sooner if needed. Orders: Orders XR ankle LT min 3V Today M25.579 - Pain in unspecified ankle and joints of unsp ecified foot Coding Level of Care Code Global (81510) Diagnoses Ankle fracture, left S82.892A Status post ORIF of fracture of ankle Z98.890; Z87.81 CPT Codes Casting - CPT: 52765-Aygkd Leg Cast Application ([id number])
--- OUTSIDE RECORDS SUMMARY | 2025-03-27 09:44 | XMS_ITS | Encounter Summary ---
Author Organization [facility] Address [address] [facility] [address] [place] [id number] Phone Care Team Providers Care Electrical Hardware Engineer Name Role Phone Shayna Becerra NP Primary Care Provider + Encounter Details Date Type Department Care Team (Late st Contact Info) Description 03/11/2025 Procedure Pass [facility] Emergency Imaging, [address] [place] [address] Social History Tobacco Use Types Packs/Day Years [...] 7:37 AM EDT Mayuri Benedict RN * Mitchell Suicide Severity Rating Scale (Screener/Recent Self-Report) Question [...] on filedocumented in this encounter Care Teams Electrical Hardware Engineer Relationship Specialty Start Date End Date Shayna Becerra NP [address] [facility] [address] [address] PCP - General Nurse Practitioner 03/10/25 documented as of this encounter Additional Source Comments The information contained in this document represents components of the legal health record. It is not the complete legal health record.[facility]
--- OUTSIDE RECORDS SUMMARY | 2025-03-27 09:44 | XMS_ITS | Clinical Summary ---
Author Organization [facility] Address [address] [address] Phone Care Team Providers Care Order Picker Name Role Phone Shayna Becerra NP Primary [...] Department Care Team Description 03/11/2025 Procedure Pass [facility] Emergency Imaging, Main [address] [place] [address] 03/10/2025 9:45 PM EDT - 03/11/2025 10:20 AM EDT Emergency [facility] Emergency Dept [address] [place] [phone] Emil Bloom MD Tasi, Fransisco Leija MD, [...] clinician's provided indication for this examination in [facility]: * Ankle dislocation TECHNIQUE: Multidetector-row CT of [...] clinician's provided indication for this examination in [facility]: *Ankle dislocation TECHNIQUE: Multidetector-row CT of the [...] fractures as described. Fransisco Han MD, EARLENE IMG CT EXTREMITY [...] provided indication for this examination in Epic: Trauma; s/p reduction COMPARISON: XR ANKLE 3 OR MORE VIEWS (LEFT) 01:17:28.000 Procedure Note Clifford Kam MD - 03/11/2025 XR ANKLE 3 OR MORE VIEWS (LEFT) Referring clinician's provided indication for this examination in Epic:Trauma; s/p reduction COMPARISON: XR ANKLE 3 OR MORE VIEWS (LEFT) 01:17:28.000 IMPRESSION: FINDINGS/IMPRESSION: Images obtained with overlying cast material which partially obscures bonydetail. Redemonstration of acute fractures of the medial malleolus and distalfibula. There is ongoing interval improvement in alignment of the fractures, withimproved distal tibiofibular alignment in comparison to prior. Tibiotalar alignment appears maintained. us Fransisco Han MD, MBA IMG XR LOWER EXTREMITY Fi nal Result * Sedation (03/11/2025 5:00 AM EDT) Narrative Fransisco Han MD, MBA - 03/11/2025 5:00 AM EDT Fransisco Han MD, MBA 03/12/2025 8:47 PM Sedation Date/Time: 03/11/2025 5:00 AM Performed by: Francisca Cornell MD Authorized by: Fransisco Han MD, MBA Consent obtained: Yes Time out: Immediately prior to the procedure a time-out was called Indications: Procedure performed: Dislocation reduction Pre-sedation assessment: Pre-sedation evaluation completed; I examined and reassessed this patient immediately prior to administration of sedation Pre sedation evaluation completed by: Dr. Han & Dr. Cornell Procedure details (see MAR for exact dosages): I was present for the length of the entire sedation timeframe from first injection and continuously throughout for 40 minutes Intended level of sedation: Deep Preoxygenation: Nonrebreather mask Sedation: Propofol Analgesia: Morphine Intra-procedure monitoring: Blood pressure monitoring, continuous capnometry, frequent LOC assessments, frequent vital sign checks, continuous pulse oximetry and centrifugal spinner Intra-procedure events: none Post-procedure details: Attendance: constant attendance by certified staff until patient recovered Recovery: patient returned to pre-procedure baseline for mental status and respiratory function Post-sedation assessments completed and reviewed: airway patency, cardiovascular function, hydration status, mental status, nausea/vomiting, pain level and respiratory function Patient tolerance: Tolerated well, no immediate complications Fransisco Han MD, MBA NURSING COMMUNICATION ORD ERABLES - ONCE Final Result * XR ANKLE 3 OR MORE [...] clinician's provided indication for this examination in [facility]: Fracture Follow Up COMPARISON: XR ANKLE 3 OR MORE VIEWS (LEFT) Procedure Note Clifford Kam MD - 03/11/2025 XR ANKLE 3 OR MORE VIEWS (LEFT) Referring clinician's provided indication for this examination in [facility]:Fracture Follow Up COMPARISON: XR ANKLE 3 OR MORE VIEWS (LEFT) IMPRESSION: FINDINGS/IMPRESSION: Images obtained with overlying cast material which partially obscures bonydetail. Redemonstration of acute fractures of the medial malleolus and distalfibula. Alignment is improved from prior. Mild persistent widening of the distaltibiofibular syndesmosis. Tibiotalar alignment appears grossly maintained. Fransisco Han MD, EARLENE IMG XR [...] clinician's provided indication for this examination in [facility]: Pain; fall, ankle tenderness. COMPARISON: FINDINGS: Tibia/fibula, [...] R esult from Last 3 Months Insurance [employer] [facility] [employer] Care Teams Order Picker Relationship Specialty Start Date End Date Shayna Becerra NP [address] [facility] [address] [place] [address] PCP - General Nurse Practitioner 03/10/25 Additional Source Comments The information contained in this document represents components of the legal health record. It is not the complete legal health record.[facility]
--- OUTSIDE RECORDS SUMMARY | 2025-03-27 09:44 | XMS_ITS | Data Portability ---
Author Organization ELENA Eduin Trujillo [facility], [facility] [place] Address [address] [place] [address] Assessment Encounter Date Assessment Date Assessment LastModified by Organization Details LastModified Time 08/16/2023 08/16/2023 tolerated all ther ex to fatigue. progressing well overall. Cont x 2weeks and d/c with independent HEP. [email or web address] Not available 08/16/2023 11:34:17 08/19/2023 08/19/2023 A: challenged with core progression. tolerated all ther ex without hip pain. P: Cont x 2weeks and d/c with independent HEP. [email or web address] Not available 08/19/2023 12:08:03 08/24/2023 08/24/2023 48-year-old female here for post op visit status post left hip arthroscopy, labral repair, and debridement of calcific tendinitis performed on May 12, 2023 as well Plan: Patient was provided updated physical therapy prescription for advance strengthening and range of motion exercises. We discussed therapy may be denied if she has used all her visits for the year. A refill on Celebrex was provided. Patient reports ongoing pain and we discussed could be up to 6 months or longer to determine if surgery should provide relief.. She will follow-up again in 3 months. All questions answered today. [email or web address] Not available 08/24/2023 14:21:45 11/16/2023 11/16/2023 48-year-old female here for post op visit status post left hip arthroscopy, labral repair, and debridement of calcific tendinitis performed on May 12, 2023 a Plan: Patient is going to continue strength training and will start working with a personalization specialist. Suggested that she drop down to 1 time per week for lower extremity strengthening. We discussed not uncommon to still have some symptoms such as pain and limited motion after hip surgery. Patient reports she is satisfied with surgery glad that she had the procedure. We discussed may expect to make some improvements over the next 6 months as well. She should continue to use pain as her guide as she progresses activity. Encouraged the patient to also operate low impact cardio and stretching into her exercise routine. We did also discuss option for postoperative PRP injection if having symptoms. She will continue with Celebrex as needed. All questions answered today. Follow-up will be arranged as symptoms dictate. [email or web address] Not available 11/16/2023 08:54:33 Plan of Treatment Reminders Order Date Submit Date Provider Last Modified By Organization Details Last Modified Time Details Appointments None recorded. Lab None recorded. Referral physical therapist referral - Advanced strengthen ing, conditioni ng, and ROM exercises. 2023 024 [email or web address] Not available 14:10:37 Procedures None recorded. Surgeries None recorded. Imaging None recorded. Medication Orders Celebrex 200 mg capsule 2023 024 [facility] #[id number], [address] [place], [address], 13:50:14 Patient TargetsNo targets recorded. Patient InstructionsNo instructions recorded. Reason for Referral Physical Therapist Referral for Pain of left hip joint s/p left hip sx Advanced strengthening, conditioning, and ROM exercises. Referring Physician: Stevie Corrales, Orthopedic Surgery, Encounter Date: 08/24/2023 Results Created Date Observation Date Name Description Value Unit Range Abnormal Flag Note LastModifiedBy Organization Detail LastModifiedTime 01/28/2004/06/2020 imagi ng/di agnos tic resul t No observ ation record ed. [email or web address] Not Available 12/31 01:34:44 01/28/20 24 09/23/2021 imagi ng/di agnos tic resul t No observ ation record ed. [email or web address] Not Available 12/31 01:35:42 Result Notes None recorded. Problems Name Problem SNOMED Code Status Onset Date Resolution Date Notes Provider Name and Address Organization Details Recorded Time No complaints 701995532 Active Status : 'A'; Not Available [facility] 09[facility]01 Problem Notes None recorded. Procedures Surgical History Date Name Laterality Status Provider Name and Address Organization Details Recorded Time 024 69371 Therapeutic Exercise (1:1) cancelled Paige Alcantara, FLOOR SUPERVISOR [address], [place], [address], [facility] 08/19/2023 16:16:30 024 99785 Therapeutic Exercise (1:1) completed Aileen Kahn, PT [address], [place], [address], [facility] 08/19/2023 10:49:16 024 02232 Therapeutic Exercise (1:1) completed Aileen Kahn, PT [address], [place], [address], [facility] 08/16/2023 11:34:37 [facility] 08/24/2023 13:23:03 cholecystectomy completed [facility] 08/24/2023 13:23:27 ligation of fallopian tube completed [facility] 08/24/2023 13:23:37 Imaging Results None recorded. Procedure Notes None recorded. Medical Equipment None Reported. Allergies No known drug allergies Medications Name Sig Start Date Stop Date Status Note LastModified by Organization Details LastModified Time celecoxib 200 mg capsule TAKE 1 CAPSULE BY MOUTH EVERY DAY DIRECTED active Not Available Not Available No t Available trazodone 50 mg tablet TAKE 1 AND 1/2 TABLET BY MOUTH EVERY DAY AT BEDTIME active Not Available Not Available No t Available aspirin 325 mg tablet TAKE 1 TABLET BY MOUTH EVERY DAY FOR 2 WEEKS AFTER SURGERY 11/15 completed Not Available Not Available Not Available ibuprofen 800 mg tablet 1 TABLET BY MOUTH EVERY 8 HOURS NEEDED FOR MENSTRUAL PAIN active Not Available Not Available No t Available tizanidine 4 mg tablet TAKE .5 TO 1 TAB TWICE A DAY NEEDED 11/15 completed Not Available Not Available Not Available fluconazole 150 mg tablet TAKE 1 TABLET BY MOUTH ONCE,INST R:TAKE ON TABLET NOW AND ONE TABLET IN 48HRS active Not Available Not Available No t Available valacyclovi r 1 gram tablet TAKE 1 TABLET BY MOUTH EVERY DAY active Not Available Not Available No t Available meloxicam 15 mg tablet TAKE 1 TABLET BY MOUTH EVERY DAY FOR 1 WEEK AFTER SURGERY THEN NEEDED 11/15 completed Not Available Not Available Not Available prednisone 20 mg tablet TAKE 2 TABLETS DAILY X 3 DAYS, THEN 1 TABLET DAILY X 3 DAYS, THEN 1/2 TABLET DAILY X 4 DAYS 11/15 completed Not Available Not Available Not Available lidocaine HCl 2 % mucosal jelly APPLY THIN LAYER TO RECTAL AREA EVERY 4 HOURS NEEDED FOR PAIN 11/15 completed Not Available Not Available Not Available ciprofloxac in 250 mg tablet TAKE 1 TABLET BY MOUTH EVERY 12 HOURS FOR 7 DAYS 11/15 completed Not Available Not Available Not Available lorazepam 0.5 mg tablet TAKE 1 TABLET BY MOUTH EVERY DAY NEEDED active Not Available Not Available No t Available diclofenac sodium 75 mg tablet,luiza yed release TAKE 1 TABLET BY MOUTH TWICE A DAY DIRECTED 11/15 completed Not Available Not Available Not Available alcohol swabs USE DIRECTED WITH ZEPBOUND active Not Available Not Available No t Available Transderm-S flight engineer helicopter 1 mg over 3 days transdermal patch APPLY 1 PATCH TOPICALLY EVERY 72 HOURS,X7 DAYS active Not Available Not Available No t Available methylpredn isolone 4 mg tablets in a dose pack TAKE 6 TABLETS ON DAY 1 DIRECTED ON PACKAGE AND DECREASE BY 1 TAB EACH DAY FOR A TOTAL OF 6 DAYS 11/15 completed Not Available Not Available Not Available ondansetron 4 mg disintegrat ing tablet TAKE 1 TABLET BY MOUTH EVERY 8 HOURS NEEDED FOR NAUSEA/VO MITING 11/15 completed Not Available Not Available Not Available fluticasone propionate 50 mcg/actuati on nasal spray,suspe nsion SPRAY 1 SPRAY INTO EACH NOSTRIL EVERY DAY active Not Available Not Available No t Available oxycodone 5 mg tablet TAKE 1 TABLET BY MOUTH EVERY [address] WHILE ON THIS MEDICATIO N 11/15 completed Not Available Not Available Not Available nitrofurant oin monohydrate /macrocryst als 100 mg capsule TAKE 1 CAPSULE BY MOUTH TWICE A DAY FOR 5 DAYS 11/15 completed Not Available Not Available Not Available BD Ultra-Fine Original Pen Needle 29 gauge x 1/2 USE DIRECTED WITH SAXENDA PEN WEEKLY 11/15 completed Not Available Not Available Not Available oxycodone HCl-oxycodo ne-ASA [address] WHILE TAKING THIS MEDICATIO N 11/15 completed Statu s: 'Curr ent'; Not Available Not Available Not Available GaviLyte-G 236 gram-22.74 gram-6.74 gram-5.86 gram oral solution PLEASE SEE ATTACHED FOR DETAILED DIRECTION S 11/15 completed Not Available Not Available Not Available nitroglycer in 0.4 % (w/w) rectal ointment APPLY SMALL AMOUNT RECTALLY EVERY 12 HOURS WASH HANDS IMMEDIATE LY AFTER APPLICATI ON active Not Available Not Available No t Available Wegovy 2.4 mg/0.75 mL subcutaneou s pen injector INJECT 2.4 MG SUBCUTANE OUSLY EVERY WEEK IN THE ABDOMEN, THIGH, OR UPPER ARM active Not Available Not Available No t Available Wegovy 1.7 mg/0.75 mL subcutaneou s pen injector 1.7 MG SUBCUTANE OUS INFUSION EVERY 7 DAYS,X4 WEEK(S) 11/15 completed Not Available Not Available Not Available Wegovy 1 mg/0.5 mL subcutaneou s pen injector INJECT 1 PEN INTO THE SKIN EVERY 7 DAYS FOR 4 WEEKS 11/15 completed Not Available Not Available Not Available Wegovy 0.25 mg/0.5 mL subcutaneou s pen injector 0.25 MG SUBCUTANE OUS INFUSION EVERY 7 DAYS,X4 WEEK(S) 11/15 completed Not Available Not Available Not Available Wegovy 0.5 mg/0.5 mL subcutaneou s pen injector USE 0.5 MG SUBCUTANE OUS INFUSION EVERY 7 DAYS,X4 WEEK(S) 11/15 completed Not Available Not Available Not Available Paxlovid 300 mg (150 mg x 2)-100 mg tablets in a dose pack TAKE 3 TABLETS BY MOUTH TWICE A DAY FOR 5 DAYS 11/15 completed Not Available Not Available Not Available Zepbound 10 mg/0.5 mL subcutaneou s pen injector USE 10 MG SUBCUTANE OUS INJECTION EVERY WEEK,INST R:ROTATE INJECTION SITES active Not Available Not Available No t Available Zepbound 5 mg/0.5 mL subcutaneou s pen injector 5 MG SUBCUTANE OUS INJECTION EVERY WEEK,INST R:ROTATE INJECTION SITES active Not Available Not Available No t Available Zepbound 7.5 mg/0.5 mL subcutaneou s pen injector INJECT 1 PEN THE SKIN ONCE WEEKLY,RO STEWART INJECTION SITES active Not Available Not Available No t Available Vitals Date Recorded Body height Body mass index (BMI) Body weight Provider Name and Address Organization Details Last Updated DateTime 08/24/2023 152.4 cm 25.4 kg/m2 71494.01 g PATRICIA PEÑA [facility] 08/24/2023 13:21:56 Date Recorded Body height Body mass index (BMI) Body weight Provider Name and Address Organization Details Last Updated DateTime 11/16/2023 152.4 cm 25.4 kg/m2 12053.01 eunice Zuleika parker [facility] 11/16/2023 08:14:27 Social History Question Answer Notes LastModified by Handy Details LastModified Time Tobacco Smoking Status Never Smoker PATRICIA PEÑA [facility] 08/24/2023 13:22:51 Have You Ever Been Counseled For Unhealthy Alcohol Use? No Information not available 08/24/2023 Sex: Unknown Functional Status Question Answer Note LastModified by Handy Details LastModified Time How many times per week do you consume alcohol? 1-2 times per week Information not available 08/24/2023 Do you use any illicit or recreational drugs? No Information not available 08/24/2023 Do you or have you ever used any other forms of tobacco or nicotine? No Information not available 08/24/2023 What is your level of alcohol consumption? Occasional Information not available 08/24/2023 Mental Status None recorded. Family History Nothing Reported. Medical History Condition Response Coronary Artery Disease N Anxiety/Depression Y Emphysema N COPD N Pacemaker N Vascular Disease N Gastrointestinal Disease N Autoimmune disease N Orthotics N Arthritis Y Blood Clot N Acid Reflux (GERD) N Cancer N Stroke N Rheumatoid Arthritis N Arrhythmia N Fibromyalgia N Allergies/Hayfever N Thyroid Problems N Kidney/Bladder Problems N Anemia N Heart Attack ([place]) N Diabetes N Bleeding Disorder N Seizures/Epilepsy N AIDS/HIV N Congestive Heart Failure (CHF) N Asthma N Peripheral Vascular Disease N Sleep Apnea N Hepatitis N Heart Disease N Pulmonary Embolism N Hypertension N Osteoporosis N Gynecological HistoryNo gynecological history recorded. Obstetrics History GPAL:G 0 P 0 0 0 0 Past Encounters Encounter ID Performer Location Encounter Start Date Encounter Closed Date Diagnosis/Indication Diagnosis SNOMED-CT Code Diagnosis ICD10 Code Diagnosis IMO Codes Diagnosis Note [id number] Aileen Kahn, PT [facility] [address] [place] [address] 08/16/2023 10:22:29 08/16/2023 12:13:58 Sprain of left hip 4711124364 2878610 S73.192D [id number] Aileen Kahn, PT [facility] [address] [place] [address] 08/19/2023 10:37:57 08/19/2023 11:31:27 Sprain of left hip 0737152419 3305829 S73.192D [id number] Stevie Corrales MD [facility] [address] [place] [address] 08/24/2023 13:11:29 09/17/2023 10:37:47 Pain of left hip joint 2135441000 44534 M25.116 [id number] Stevie Corrales MD [facility] [address] [place] [address] 11/16/2023 08:03:41 12/15/2023 09:55:04 Pain of left hip joint 0624046862 58690 M25.552 Sprain of left hip 49098 94488 8745106 S73.102D Health Concerns Section Related Observation LastModified by Organization Detai ls LastModified Time None Recorded Concern Status LastModified by Organization Details LastModified Time None Recorded Advance Directives Directive None Recorded Payers Insurance Date Sequence Insurance Name Policy Number Policy Brady Covered Member ID Brady Member ID Guarantor Name 11/16/2023 1 [facility] [id number] Lynda Baca [id number] Lynda Baca 03/12/[address] [facility] (MEDICAID HMO) [id number] Lynda Wolfuill [id number] 1 Lynda Wolfuill 03/12/2025 1 [employer] [facility]) [id number] Lynda Baca [id number] Lynda Wolfuill Notes Date Note Type Note Provider Name and Address Organization Details Recorded Time 08/16/2023 text/html still getting some pain L anterior hip. definitely feeling stronger overall. Aileen Kahn, PT [address], [place], [address], [facility] 08/16/2023 11:34:50 08/19/2023 text/html hip is sore all the time now where as before surgery it was only painful with activity. prior to surgery was taking anti inflamm meds daily, but now not taking at all. Aileen Kahn, PT [address], [place], [address], [facility] 08/19/2023 12:08:29 08/24/2023 text/html Chief complaint: Post op visitHPI: Patient is a 48-year-old female here for post op visit status post left hip arthroscopy, labral repair, and debridement of calcific tendinitis performed on May 12, 2023. Patient has been attending physical therapy. She reports still having pain and pulling sensation in the anterior hip. She has been focusing on progressive strengthening range of motion exercises continued Celebrex one month ago. Stevie Corrales MD [address], [place], [address], [facility] 08/24/2023 14:21:59 11/16/2023 text/html Chief complaint: Post op visitHPI: Patient is a 48-year-old female here for post op visit status post left hip arthroscopy, labral repair, and debridement of calcific tendinitis performed on May 12, 2023. Patient has completed physical therapy. She recently started strength training at the gym. She reports she has been doing lower extremity strength training 2-3 times per week. She reports hip feeling slightly better from last week. She reports no pain at rest. No pain with sitting or driving. She does report 2 out of 10 pain with activities such as lunges and deep squats. Pain localizing to the anterior hip. Stevie Corrales MD [address], [place], [address], [facility] 11/16/2023 08:55:01 OBGyn Episode No OBEpisode recorded.
== END 2025-03-27 10:48 | disposition home or self-care (01) ==
LOC: HO.HOS 08:53
PROVIDERS: PCP Nurse Practitioner Family; Visit Provider Physician Assistant
DX: S82.892A Other fracture of left lower leg, initial encounter for closed fracture (principal); Z98.890 Other specified postprocedural states; Z87.81 Personal history of (healed) traumatic fracture
CPT/HCPCS: 29405; 99024

== ENCOUNTER → 2025-03-27 08:55 | Outpatient (BNV) | payer OTHER, SELFPAY | PROVIDERS: Visit Provider Radiology Diagnostic Radiology | DX: S82.52XD Displaced fracture of medial malleolus of left tibia, subsequent encounter for closed fracture with routine healing (principal) | CPT/HCPCS: 73610 ==

== ENCOUNTER 2025-05-03 13:01 | Outpatient (AMB) | payer OTHER, SELFPAY ==
--- NOTE | 2025-05-03 13:02 | MHC.OFFVIS ---
Vital Signs 05/03/25 13:34 Height 5 ft Weight 141 lb BMI 27.5 Intake Visit Reasons: PO - left ankle ORIF 03/14/25 NE Intake Note: Lynda is a 49 year old female who presents today for a post operative appointment for her states post left ankle bimalleolar and syndesmosis ORIF done on 03/14/[address] Haynes. At her last visit she her suture were removed and was placed in a short leg cast. Patient reports that pain is vary constistent and toes are numb swelling Allergies hydromorphone (From Dilaudid) Allergy (Intermediate, Verified 05/03/25 13:34) Itching HPI HPI PO - left ankle ORIF 03/14/25 NE: Details: Ms. Baca is a 49 year old female who presents to the office today for routine follow-up status post left ankle ORIF performed on 03/14/[address] Haynes. At her last appointment on 03/27/2025 patient was placed back into a short-leg cast and instructed to non weightbear. While presenting to the office today the cast was removed for repeat x-rays to be obtained. She reports that she has been compliant with nonweightbearing and her pain is managed. No additional complaints. [facility] Medical History (Updated 03/23/25 @ 00:01 by Georges Spain) Labral tear of hip joint Surgical History (Updated 03/27/25 @ 11:41 by Patricia Ricci PA-C) Hx of cholecystectomy Social History Household Members: Children Housing: House Do you presently have visiting nurse or other home services: No Patient Tobacco Use Status: Never used Tobacco service: No Review of Systems Const All systems reviewed & are unremarkable except as noted in HPI and below Physical Exam Vital Signs: BMI result Body Mass Index 27.5 Const General: cooperative, healthy appearing and no acute distress Resp Effort & Inspection: normal respiratory effort and able to speak in complete sentences Extrem Other: Left ankle incision sites are clean dry and intact. No surrounding erythema or drainage. No signs of infection. Able to slightly dorsiflex and plantar flex but is significantly limited due to stiffness. Sensation is reportedly intact. Pedal pulse intact. Psych Appearance: grossly normal Mental Status: mental status grossly normal Attitude: cooperative Assessment & Plan Assessment & Plan (1) Status post ORIF of fracture of ankle: Code(s): Z98.890 - Other specified postprocedural states; Z87.81 - Personal history of (healed) traumatic fracture Category: Surgical Plan Ms. Baca is a 49 year old female who presents to the office today for routine follow-up status post left ankle ORIF performed on 03/14/[address] Haynes. At her last appointment on 03/27/2025 patient was placed back into a short-leg cast and instructed to non weightbear. While presenting to the office today the cast was removed for repeat x-rays to be obtained. She reports that she has been compliant with nonweightbearing and her pain is managed. No additional complaints. While in the office today, the patient was transitioned to a tall walking boot. She may begin to weightbear as tolerated in the boot at all times. She may remove the boot to perform physical therapy exercises and bathing. All weight-bearing activity should be in the tall walking boot. I also placed an order for physical therapy to begin working on gentle range of motion. The goal is to wean her out of the boot over the next 4-6 weeks. She is provided with an out-of-work note until her follow up appointment. I would like to see her back in the office in 6 weeks with repeat x-rays, sooner if needed. X-rays of the left ankle which were obtained while in the office today and were reviewed by me, Patricia Ricci PA-C, revealed intact orthopedic hardware with routine healing. Orders: Orders XR ankle LT min 3V Today M25.579 - Pain in unspecified ankle and joints of unspecified foot Coding Level of Care Code Global (66738) Diagnoses Status post ORIF of fracture of ankle Z98.890; Z87.81
[2025-05-03 13:34] VITALS: BMI 27.5
== END 2025-05-03 14:20 | disposition home or self-care (01) ==
LOC: HO.HOS 13:02
PROVIDERS: Visit Provider Physician Assistant
DX: Z98.890 Other specified postprocedural states (principal); Z87.81 Personal history of (healed) traumatic fracture
CPT/HCPCS: 99024